=== PATIENT | male | born 1975 | race Caucasian/White ===

== ENCOUNTER 2016-09-11 13:28 | Emergency (ER) | payer MEDICARE, MEDICAID ==
[2016-09-11 13:39] VITALS: BP 135/81
[2016-09-11] MEDS ORDERED: SODIUM BICARBONATE ABBOJECT 50 MEQ/50 ML SYRINGE ONE (15:53)
[2016-09-11] MEDS ORDERED: LIDOCAINE 1% 2 ML VIAL ONE ×2 (15:53→15:55)
--- NOTE | 2016-09-11 15:56 | ED Physician Documentation ---
PD HPI LOWER EXT INJURY - Stated complaint Stated Complaint: SWOLLEN RIGHT FOOT - Chief complaint Chief Complaint: Trauma Ext - History obtained from History obtained from: Patient - History of Present Illness PD HPI LOW EXT INJURY LOCATION: Right (Long-standing ingrown toenail of the right great toe which is painful especially on the lateral side.) Review of Systems Constitutional: reports: Reviewed and negative Nose: reports: Reviewed and negative Throat: reports: Reviewed and negative PD PAST MEDICAL HISTORY - Past Medical History Cardiovascular: None Respiratory: Asthma Neuro: None Endocrine/Autoimmune: None GI: None : Kidney stones HEENT: None Psych: None Musculoskeletal: None Derm: None - Past Surgical History Past Surgical History: Yes - Present Medications Home Medications: Ambulatory Orders Medication Instructions Recorded Confirmed Albuterol Sulfate [Ventolin Hfa] 2 puffs IH Q4H PRN #1 hfa.aer.ad 10/03/15 Benzonatate [Tessalon] 200 mg PO TID PRN #30 capsule 10/03/15 Prednisone 40 mg PO DAILY 5 Days 10/03/15 Hydrocodone/Acetaminophen [[place] 1 each PO Q6H PRN #15 tablet 01/27/16 5-325 Tablet] Ibuprofen 800 mg PO TID #20 tablet 01/27/16 Ondansetron HCl [Zofran] 4 mg PO Q6H PRN #15 tablet 01/27/16 Diazepam [Valium] 2 mg PO Q6H PRN #10 tablet 02/29/16 Meloxicam [Mobic] 7.5 mg PO BIDWM PRN #15 tablet 02/29/16 predniSONE [Deltasone] 20 mg PO DAILY 5 Days 02/29/16 - Allergies Allergies/Adverse Reactions: Allergies Allergy/AdvReac Type Severity Reaction Status Date / Time Penicillins Allergy Mild Rash Verified 10/17/14 22:17 amoxicillin [Amoxicillin] AdvReac Intermediate Emesis Verified 10/17/14 22:17 amoxicillin trihydrate * AdvReac Intermediate Emesis Verified 10/17/14 22:17 [From Augmentin] potassium clavulanate * AdvReac Intermediate Emesis Verified 10/17/14 22:17 [From Augmentin] - Social History Does the pt smoke?: No Smoking Status: Never smoker Does the pt drink ETOH?: No Does the pt have substance abuse?: No - Immunizations Immunizations are current?: No Immunizations: TDAP >10years/unknown - POLST Patient has POLST: No PD ED PE NORMAL - Vitals Vital signs reviewed: Yes - General General: Alert and oriented X 3, No acute distress - Extremities Extremities: Other (The entirety of the right great toe is ingrown with Onychiomycosis as well.) - Neuro Neuro: Alert and oriented X 3, Normal speech - Psych Psych: Normal mood, Normal affect Results - Vitals Vitals: Vital Signs - 24 hr 09/11/16 13:36 Temperature 36.9 C Heart Rate 74 Respiratory 20 Rate Blood Pressure 135/81 H O2 Saturation 98 Oxygen O2 Source Room air Procedures - General procedure General procedure: After digital block of the right great toe with buffered plain lidocaine the toenail was removed using blunt dissection, the base was cauterized with silver nitrate a dressing was placed. Departure - Departure Disposition: 01 Home, Self Care Clinical Impression: Ingrown toenail, Onychomycosis Condition: Good Record reviewed to determine appropriate education?: Yes Instructions: ED Ingrown Toenail Excised Comments: Keep the current dressing on for 2 days, after that you may wash it briefly with soap and water and keep it clean and dry. Return if worse. Follow up with your Dr. in one week. Your blood pressure was elevated today on check in to the emergency department. This does not mean that you have hypertension, it is a common phenomenon to check into the emergency department and have elevated blood pressure. I recommend that you see your primary care physician within the week to have it rechecked when you're feeling better.
== END 2016-09-11 16:42 | disposition home or self-care (01) ==
LOC: ED 13:28
DX: L60.0 Ingrowing nail (principal); B35.1 Tinea unguium; J45.909 Unspecified asthma, uncomplicated; Z87.442 Personal history of urinary calculi; R03.0 Elevated blood-pressure reading, without diagnosis of hypertension
CPT/HCPCS: 11730; 99282; 99283

== ENCOUNTER 2017-02-04 12:42 | Emergency (ER) | payer MEDICARE, MEDICAID ==
[2017-02-04] MEDS ORDERED: ONDANSETRON 4 MG/2 ML VIAL IVP STA (13:08)
[2017-02-04] MEDS ORDERED: KETOROLAC 60 MG/2 ML VIAL IVP STA (13:08)
--- NOTE | 2017-02-04 13:10 | ED Physician Documentation ---
PD HPI ABD PAIN - Stated complaint Stated Complaint: ABD PX/NAUSEA/BACK PX - Chief complaint Chief Complaint: Abd Pain - History obtained from History obtained from: Patient - History of Present Illness Timing - onset: Other (41-year-old gentleman with history of renal colic, although not many years presents with 3 days worth of stomach upset and left- sided abdominal and flank pain associated with urinary burning but no hematuria or frequency. He has been nauseous but has not vomited. He did feel some pain with bowel movements as well yesterday. No fevers.) Review of Systems Constitutional: denies: Fever, Chills Nose: denies: Rhinorrhea / runny nose, Congestion Cardiac: denies: Chest pain / pressure, Palpitations Respiratory: denies: Dyspnea, Cough PD PAST MEDICAL HISTORY - Past Medical History Cardiovascular: None Respiratory: Asthma Neuro: None Endocrine/Autoimmune: None GI: None : Kidney stones HEENT: None Psych: None Musculoskeletal: None Derm: None - Past Surgical History Past Surgical History: Yes - Present Medications Home Medications: Ambulatory Orders Medication Instructions Recorded Confirmed Albuterol Sulfate [Ventolin Hfa] 2 puffs IH Q4H PRN #1 hfa.aer.ad 10/03/15 Benzonatate [Tessalon] 200 mg PO TID PRN #30 capsule 10/03/15 Prednisone 40 mg PO DAILY 5 Days 10/03/15 Hydrocodone/Acetaminophen [[place] 1 each PO Q6H PRN #15 tablet 01/27/16 5-325 Tablet] Ibuprofen 800 mg PO TID #20 tablet 01/27/16 Ondansetron HCl [Zofran] 4 mg PO Q6H PRN #15 tablet 01/27/16 Diazepam [Valium] 2 mg PO Q6H PRN #10 tablet 02/29/16 Meloxicam [Mobic] 7.5 mg PO BIDWM PRN #15 tablet 02/29/16 predniSONE [Deltasone] 20 mg PO DAILY 5 Days 02/29/16 HYDROcod/ACETAM 5/325 [[place] 5/325] 1 - 2 ea PO Q6H PRN #15 tablet 02/04/17 Ondansetron HCl [Zofran] 4 mg PO Q6H PRN #10 tablet 02/04/17 Tamsulosin [Flomax] 0.4 mg PO DAILY #14 capsule 02/04/17 - Allergies Allergies/Adverse Reactions: Allergies Allergy/AdvReac Type Severity Reaction Status Date / Time Penicillins Allergy Mild Rash Verified 10/17/14 22:17 amoxicillin [Amoxicillin] AdvReac Intermediate Emesis Verified 10/17/14 22:17 amoxicillin trihydrate * AdvReac Intermediate Emesis Verified 10/17/14 22:17 [From Augmentin] potassium clavulanate * AdvReac Intermediate Emesis Verified 10/17/14 22:17 [From Augmentin] - Social History Does the pt smoke?: No Smoking Status: Never smoker Does the pt drink ETOH?: No Does the pt have substance abuse?: No - Immunizations Immunizations are current?: No Immunizations: TDAP >10years/unknown - POLST Patient has POLST: No PD ED PE NORMAL - Vitals Vital signs reviewed: Yes - General General: Alert and oriented X 3, No acute distress - Cardiac Cardiac: RRR, No murmur - Respiratory Respiratory: No respiratory distress, Clear bilaterally - Abdomen Abdomen: Soft, Non tender - Back Back: Other (Mild left CVA tenderness, no rash there) - Derm Derm: Normal color, Warm and dry - Extremities Extremities: No edema, No calf tenderness / cord - Neuro Neuro: Alert and oriented X 3, Normal speech - Psych Psych: Normal mood, Normal affect Results - Vitals Vitals: Vital Signs - 24 hr 02/04/17 12:54 Temperature 37.1 C Heart Rate 89 Respiratory 17 Rate Blood Pressure 157/96 H O2 Saturation 97 Oxygen O2 Source Room air - Labs Labs: Laboratory Tests 02/04/17 02/04/17 02/04/17 13:00 13:22 13:22 WBC 7.4 RBC 4.64 L Hgb 14.4 Hct 41.7 L MCV 89.8 MCH 31.0 MCHC 34.5 RDW 12.7 Plt Count 172 MPV 7.9 Neut # 5.1 Lymph # 1.5 [place] # 0.8 Eos # 0.1 Baso # 0.0 Absolute Nucleated RBC 0.00 Nucleated RBCs 0.0 Sodium 136 Potassium 3.9 Chloride 100 L Carbon Dioxide 29 Anion Gap 7.0 BUN 19 Creatinine 1.4 H Estimated GFR (MDRD) 55 L Glucose 101 H Calcium 8.8 Total Bilirubin 0.7 AST 28 ALT 35 Alkaline Phosphatase 59 Total Protein 6.9 Albumin 4.3 Globulin 2.6 Albumin/Globulin Ratio 1.7 Lipase 20 L Urine Color YELLOW Urine Clarity CLEAR Urine pH 6.0 Ur Specific [place] 1.020 Urine Protein NEGATIVE Urine Glucose (UA) NEGATIVE Urine Ketones NEGATIVE Urine Occult Blood TRACE-INTA Urine Nitrite NEGATIVE Urine Bilirubin NEGATIVE Urine Urobilinogen 0.2 (NORMAL) Ur Leukocyte Esterase NEGATIVE Ur Microscopic Review NOT INDICATED Urine Culture Comments NOT INDICATED - Rads (name of study) CT KUB Radiology: EMP read contemporaneously (8 x 6 mm obstructing left UPJ stone and nonobstructing right renal calculi) PD MEDICAL DECISION MAKING - ED course ED course: 41-year-old gentleman with renal colic presents with an exacerbation of same with a stone will likely need to be addressed. His pain was easily controlled here and he was referred to a urologist for definitive treatment. Further NSAIDs were held given mild elevation in creatinine Departure - Departure Disposition: Home, Self Care Clinical Impression: Renal colic Condition: Good Record reviewed to determine appropriate education?: Yes Instructions: ED Stone Renal W Colic Prescriptions: Tamsulosin [Flomax] 0.4 mg PO DAILY #14 capsule HYDROcod/ACETAM 5/325 [[place] 5/325] 1 - 2 ea PO Q6H PRN #15 tablet PRN Reason: Pain Ondansetron HCl [Zofran] 4 mg PO Q6H PRN #10 tablet PRN Reason: Nausea / Vomiting Comments: As discussed, he will likely need to have the stone retrieved by urologist. Now that Dr. Sung is retired the closest is in [place], call [phone] tomorrow to schedule the next available appointment. Take the copy of the CAT scan on CD with you. Do not drink or drive while taking narcotic pain medication. Note that many narcotic pain relievers also contain Tylenol/acetaminophen. Please ensure that your total dose of acetaminophen from all sources does not exceed 3 g (3000 mg) per day. You may get constipated while on this medication. Take a stool softener such as Colace twice a day while you are on it. Also add an [id number] laxative such as senna or MiraLAX on any day that you do not have a bowel movement. If you received a narcotic pain medication or sedative while in the emergency department, do not drive for the next 24 hours. Your blood pressure was elevated today on check into the emergency department. This does not mean that you have hypertension, it is a common phenomenon to come to the emergency department and have elevated blood pressure. I recommend that she see her primary care physician within the week to have it rechecked when you are feeling better.
[2017-02-04 13:22] LABS: BILIRUBIN,URINE NEGATIVE (NEGATIVE); UA CHARGE (STRIP ONLY) YES; UR CULTURE IF IND NOT INDICATED
[2017-02-04 13:29] LABS: BASOPHILS % (AUTO) 0.5 %; EOSINOPHILS # (AUTO) 0.1 10^3/uL (0.0-0.7); EOSINOPHILS % (AUTO) 0.8 %; HCT - HEMATOCRIT 41.7 % (42.0-52.0); HGB - HEMOGLOBIN 14.4 g/dL (14.0-18.0); LYMPHOCYTES # (AUTO) 1.5 10^3/uL (1.5-3.5); LYMPHOCYTES % (AUTO) 19.9 %; MEAN CORPUSCULAR HGB CONC 34.5 g/dL (32.0-36.0); MEAN CORPUSCULAR VOLUME 89.8 fL (80.0-94.0); MEAN PLATELET VOLUME 7.9 fL (7.4-11.4); MONOCYTES # (AUTO) 0.8 10^3/uL (0.0-1.0); MONOCYTES % (AUTO) 10.4 %; NEUTROPHILS # (AUTO) 5.1 10^3/uL (1.5-6.6); NEUTROPHILS % (AUTO) 68.4 %; RED BLOOD COUNT 4.64 10^6/uL (4.70-6.10); RED CELL DISTRIBUTION WIDTH 12.7 % (12.0-15.0); UNCORRECTED WHITE BLOOD COUNT 7.4 x10^3/uL; WHITE BLOOD COUNT 7.4 x10^3/uL (4.8-10.8)
[2017-02-04 13:43] LABS: ALBUMIN/GLOBULIN RATIO 1.7 (1.0-2.2); BILIRUBIN,TOTAL 0.7 mg/dL (0.2-1.0); CALCIUM 8.8 mg/dL (8.5-10.3); CREATININE 1.4 mg/dL (0.6-1.2); POTASSIUM 3.9 mmol/L (3.5-5.0); TOTAL PROTEIN 6.9 g/dL (6.7-8.2)
[2017-02-04] MEDS ORDERED: KETOROLAC 30 MG/ML VIAL ONE (13:52)
[2017-02-04] MEDS ORDERED: ONDANSETRON 4 MG/2 ML VIAL ONE (13:52)
[2017-02-04] MEDS ORDERED: SODIUM CHLORIDE FLUSH 0.9% 10 ML SYRINGE IVP ONE (13:52)
[2017-02-04] MEDS ORDERED: SODIUM CHLORIDE 0.9% 1,000 ML IV ONE (14:04)
--- NOTE | 2017-02-04 14:05 | CT Preliminary Report ---
Exam: CT Abdomen/Pelvis W/O IMPRESSION: Obstructing 8 x 6 mm stone in the left ureteropelvic junction, with moderate left hydronephrosis. Sma ller nonobstructing right renal calculi. [facility] SITE ID: [id number]
--- NOTE | 2017-02-04 14:08 | CT Report ---
EXAM: CT ABDOMEN AND PELVIS (CT KUB) EXAM DATE: 02/04/2017 01:53 PM. CLINICAL HISTORY: L flank pain. COMPARISONS: 01/27/2016. TECHNIQUE: Routine axial helical CT imaging was performed through the abdomen and pelvis without IV c ontrast. Reconstructions: Coronal and sagittal. In accordance with CT protocol optimization, one or more of the following dose reduction techniques w ere utilized for this exam: automated exposure control, adjustment of mA and/or KV based on patient s ize, or use of iterative reconstructive technique. FINDINGS: Lung Bases: Mild atelectasis. Right Kidney/Ureter: 3 mm nonobstructing lower pole calculus and 1 mm interpolar calculus, also nonob structing. No hydronephrosis. Left Kidney/Ureter: Obstructing 8 x 6 mm calculus at the left ureteropelvic junction. Moderate left h ydronephrosis. No hydroureter. Left perinephric stranding. R Other Solid Organs: Noncontrast images of the solid organs are grossly unremarkable. Gallbladder/Bile Ducts: Unremarkable. Peritoneal Cavity: No free fluid, free air or tish adenopathy. Bowel is grossly unremarkable. Pelvic Organs: Trace free fluid in the pelvis. No distal ureteric calculus or bladder calculus is see n. Vasculature: Unremarkable. Other: None. IMPRESSION: Obstructing 8 x 6 mm stone in the left ureteropelvic junction, with moderate left hydronephrosis. Sma ller nonobstructing right renal calculi. [facility] Referring Provider Line: [phone] SITE ID: [id number]
[2017-02-04 14:36] VITALS: BP 133/76
== END 2017-02-04 14:45 | disposition home or self-care (01) ==
LOC: ED 12:42
DX: N20.0 Calculus of kidney (principal)
CPT/HCPCS: 36415; 74176; 80053; 81001; 81003; 83690; 85025; 87086; 96374; 96375; 99283; 99284

== ENCOUNTER 2017-03-30 11:24 | Emergency (ER) | payer MEDICARE, MEDICAID ==
[2017-03-30] MEDS ORDERED: KETOROLAC 60 MG/2 ML VIAL IVP STA (12:15)
[2017-03-30] MEDS ORDERED: ONDANSETRON 4 MG/2 ML VIAL IVP STA (12:17)
--- NOTE | 2017-03-30 12:18 | ED Physician Documentation ---
PD HPI ABD PAIN - Stated complaint Stated Complaint: LT SIDE/BACK PX - Chief complaint Chief Complaint: Abd Pain - History obtained from History obtained from: Patient - History of Present Illness Timing - onset: Today Timing - duration: Hours (4) Timing - details: Abrupt onset Pain level max: 8 Pain level now: 8 Quality: Aching, Pain Location: Other (R flank) Radiation: Right flank Improved by: Other (nothing) Worsened by: Other (nothing) Associated symptoms: Nausea, Vomiting. No: Fever, Hematemesis, Diarrhea, Constipation, Melena, Hematochezia, Dysuria, Hematuria, Chest pain, Dizzy, Near syncope / syncope Similar symptoms before: Diagnosis (kidney stones x 2, states they both had to be removed.) Review of Systems Constitutional: denies: Fever, Chills Ears: denies: Ear pain Nose: denies: Rhinorrhea / runny nose, Congestion Throat: denies: Sore throat Cardiac: denies: Chest pain / pressure Respiratory: denies: Cough Skin: denies: Rash Musculoskeletal: denies: Neck pain, Back pain Neurologic: denies: Focal weakness, Numbness, Headache PD PAST MEDICAL HISTORY - Past Medical History Cardiovascular: None Respiratory: Asthma Neuro: None Endocrine/Autoimmune: None GI: None : Kidney stones HEENT: None Psych: None Musculoskeletal: None Derm: None - Past Surgical History Past Surgical History: Yes - Present Medications Home Medications: Ambulatory Orders Medication Instructions Recorded Confirmed Albuterol Sulfate [Ventolin Hfa] 2 puffs IH Q4H PRN #1 hfa.aer.ad 10/03/1503/30 Hydrocodone/Acetaminophen [[place] 1 each PO Q6H PRN #15 tablet 01/27/16 03/30/17 5-325 Tablet] Ibuprofen 800 mg PO TID #20 tablet 01/27/16 03/30/17 Ondansetron HCl [Zofran] 4 mg PO Q6H PRN #15 tablet 01/27/16 03/30/17 Meloxicam [Mobic] 7.5 mg PO BIDWM PRN #15 tablet 02/29/16 03/30/17 HYDROcod/ACETAM 5/325 [[place] 5/325] 1 - 2 ea PO Q6H PRN #15 tablet 02/04/17 Hydrocodone/Acetaminophen 1 - 2 each PO Q6H PRN #14 tablet 03/30/17 [Hydrocodon-Acetaminophen 5-325] Ibuprofen [Motrin] 800 mg PO Q8H PRN #30 tablet 03/30/17 Ondansetron Odt [Zofran] 4 mg TL Q6H PRN #10 tablet 03/30/17 - Allergies Allergies/Adverse Reactions: Allergies Allergy/AdvReac Type Severity Reaction Status Date / Time Penicillins Allergy Mild Rash Verified 03/30/17 11:32 amoxicillin [Amoxicillin] AdvReac Intermediate Emesis Verified 03/30/17 11:32 amoxicillin trihydrate * AdvReac Intermediate Emesis Verified 03/30/17 11:32 [From Augmentin] potassium clavulanate * AdvReac Intermediate Emesis Verified 03/30/17 11:32 [From Augmentin] - Social History Does the pt smoke?: No Smoking Status: Never smoker Does the pt drink ETOH?: No Does the pt have substance abuse?: No - Immunizations Immunizations are current?: No Immunizations: TDAP >10years/unknown - POLST Patient has POLST: No PD ED PE NORMAL - Vitals Vital signs reviewed: Yes - General General: Alert and oriented X 3, No acute distress - HEENT HEENT: Moist mucous membranes - Neck Neck: Supple, no meningeal sign - Cardiac Cardiac: RRR - Respiratory Respiratory: No respiratory distress, Clear bilaterally - Abdomen Abdomen: Soft, Non tender, Non distended - Male Male : Pt declined - Back Back: No CVA TTP, No spinal TTP - Derm Derm: Warm and dry, No rash - Neuro Neuro: Alert and oriented X 3 - Psych Psych: Normal mood, Normal affect Results - Vitals Vitals: Vital Signs - 24 hr 03/30/17 03/30/17 03/30/17 11:26 12:57 14:01 Temperature 35.0 C L Heart Rate 67 87 78 Respiratory 18 15 16 Rate Blood Pressure 174/97 H 147/91 H 127/64 O2 Saturation 99 94 99 Oxygen O2 Source Room air - Labs Labs: Laboratory Tests 03/30/17 03/30/17 03/30/17 12:04 12:04 12:04 WBC 5.4 RBC 4.86 Hgb 15.2 Hct 44.3 MCV 91.3 MCH 31.3 H MCHC 34.3 RDW 12.7 Plt Count 183 MPV 8.0 Neut # 3.9 Lymph # 1.0 L [place] # 0.5 Eos # 0.0 Baso # 0.0 Absolute Nucleated RBC 0.00 Nucleated RBC % 0.0 Sodium 137 Potassium 3.9 Chloride 99 L Carbon Dioxide 27 Anion Gap 11.0 BUN 18 Creatinine 0.9 Estimated GFR (MDRD) 92 Glucose 132 H Calcium 9.5 Total Bilirubin 0.5 AST 38 ALT 55 Alkaline Phosphatase 66 Total Protein 7.6 Albumin 5.0 Globulin 2.6 Albumin/Globulin Ratio 1.9 Lipase 19 L Urine Color BROWN Urine Clarity CLOUDY Urine pH 5.5 Ur Specific [place] >=1.030 H Urine Protein 100 H Urine Glucose (UA) NEGATIVE Urine Ketones NEGATIVE Urine Occult Blood LARGE H Urine Nitrite NEGATIVE Urine Bilirubin SMALL H Urine Urobilinogen 0.2 (NORMAL) Ur Leukocyte Esterase NEGATIVE Urine RBC TNTC H Urine WBC 0-3 Ur Epithelial Cells RARE Renal Tubular Ur Squamous Epith Cells FEW Squamous Urine Crystals 6-10 Calcium Oxalate Urine Bacteria Rare Urine Mucus Few Strands Ur Microscopic Review INDICATED Urine Culture Comments NOT INDICATED - Rads (name of study) CT abd/pelvis w/o Radiology: Prelim report reviewed, EMP read contemporaneously, See rad report ( There is bilateral nephrolithiasis. There is mild right hydronephrosis, hydroureter, perinephric stranding secondary to a 0.2 cm stone within the lower right ureter. ) PD MEDICAL DECISION MAKING - ED course Complexity details: reviewed results, re-evaluated patient, considered differential, d/w patient ED course: Patient is a 41-year-old male who presents to the emergency department with right flank pain. He is found to have a 0.2 cm stone within the lower right ureter. Pain resolved with Toradol. Tolerating p.o. without difficulty. No UTI. Will place on pain medication for home and follow-up with his doctor and his urologist. Patient counseled regarding signs and symptoms for which I believe and urgent re-evaluation would be necessary. Patient with good understanding of and agreement to plan and is comfortable going home at this time This document was made in part using voice recognition software. While efforts are made to proofread this document, sound alike and grammatical errors may occur. Departure - Departure Disposition: 01 Home, Self Care Clinical Impression: Ureteral stone Condition: Good Instructions: ED Stone Renal W Colic Follow-Up: Jasper Greene MD [Primary Care Provider] - Within 1 week Prescriptions: Hydrocodone/Acetaminophen [Hydrocodon-Acetaminophen 5-325] 1 - 2 each PO Q6H PRN #14 tablet PRN Reason: pain Ibuprofen [Motrin] 800 mg PO Q8H PRN #30 tablet PRN Reason: PAIN &/OR FEVER Ondansetron Odt [Zofran] 4 mg TL Q6H PRN #10 tablet PRN Reason: Nausea / Vomiting Comments: Drink plenty of fluids. Return if you worsen. Do not drink alcohol or drive while on narcotic pain medicine. Note that many narcotic pain relievers also contain tylenol/acetaminophen. Please ensure that your total dose of acetaminophen from all sources does not exceed 3 grams (3000mg) per day. You may constipated on this medication, take a stool softener such as "Colace" twice a day while you are on it. Also recommend a uhto-wrb-htnphwq laxative such as senna or MiraLAX any day that you do not have a bowel movement. If you received narcotic pain medication in the emergency department, do not drive or operate machinery for the next 24 hours. Discharge Date/Time: 03/30/17 14:01
[2017-03-30 12:22] LABS: BILIRUBIN,URINE SMALL (NEGATIVE); PH,URINE 5.5 PH (5.0-7.5)
[2017-03-30 12:23] LABS: BASOPHILS % (AUTO) 0.4 %; EOSINOPHILS % (AUTO) 0.1 %; HCT - HEMATOCRIT 44.3 % (42.0-52.0); HGB - HEMOGLOBIN 15.2 g/dL (14.0-18.0); LYMPHOCYTES % (AUTO) 18.8 %; MEAN CORPUSCULAR HEMOGLOBIN 31.3 pg (27.0-31.0); MEAN CORPUSCULAR HGB CONC 34.3 g/dL (32.0-36.0); MEAN CORPUSCULAR VOLUME 91.3 fL (80.0-94.0); MONOCYTES # (AUTO) 0.5 10^3/uL (0.0-1.0); MONOCYTES % (AUTO) 8.5 %; NEUTROPHILS # (AUTO) 3.9 10^3/uL (1.5-6.6); NEUTROPHILS % (AUTO) 72.2 %; RED BLOOD COUNT 4.86 10^6/uL (4.70-6.10); RED CELL DISTRIBUTION WIDTH 12.7 % (12.0-15.0); UNCORRECTED WHITE BLOOD COUNT 5.4 x10^3/uL; WHITE BLOOD COUNT 5.4 x10^3/uL (4.8-10.8)
[2017-03-30] MEDS ORDERED: KETOROLAC 30 MG/ML VIAL ONE (12:28)
[2017-03-30] MEDS ORDERED: ONDANSETRON 4 MG/2 ML VIAL ONE (12:28)
[2017-03-30 12:33] LABS: ALBUMIN/GLOBULIN RATIO 1.9 (1.0-2.2); BILIRUBIN,TOTAL 0.5 mg/dL (0.2-1.0); CALCIUM 9.5 mg/dL (8.5-10.3); CREATININE 0.9 mg/dL (0.6-1.2); POTASSIUM 3.9 mmol/L (3.5-5.0); TOTAL PROTEIN 7.6 g/dL (6.7-8.2)
[2017-03-30 12:35] LABS: UA w/ MICROSCOPIC CHARGE YES
[2017-03-30 12:41] LABS: UR CULTURE IF IND NOT INDICATED; WBC,URINE 0-3 /HPF (0-3)
--- NOTE | 2017-03-30 13:51 | CT Preliminary Report ---
Exam: CT ABDOMEN/PELVIS W/O IMPRESSION: There is bilateral nephrolithiasis. There is mild right hydronephrosis, hydroureter, perinephric stra nding secondary to a 0.2 cm stone within the lower right ureter. [facility] SITE ID: [id number]
--- NOTE | 2017-03-30 13:53 | CT Report ---
EXAM: CT ABDOMEN AND PELVIS (CT KUB) EXAM DATE: 03/30/2017 01:21 PM. CLINICAL HISTORY: R flank pain, h/o renal stones. COMPARISONS: 02/04/2017. TECHNIQUE: Routine axial helical CT imaging was performed through the abdomen and pelvis without IV c ontrast. Reconstructions: Coronal and sagittal. In accordance with CT protocol optimization, one or more of the following dose reduction techniques w ere utilized for this exam: automated exposure control, adjustment of mA and/or KV based on patient s ize, or use of iterative reconstructive technique. FINDINGS: Lung Bases: Unremarkable. Right Kidney/Ureter: There is mild right hydronephrosis, hydroureter, and perinephric stranding secon jun to a 0.2 cm stone within the lower right ureter (image 82 series 3). There is a 0.4 cm nonobstru cting stone within the lower right kidney. Left Kidney/Ureter: There are several nonobstructing stones within the inferior left kidney. There is no evidence of distal obstructing stone or hydronephrosis. Other Solid Organs: Noncontrast images of the solid organs are grossly unremarkable. Gallbladder/Bile Ducts: Unremarkable. Peritoneal Cavity: No free fluid, free air or tish adenopathy. Bowel is grossly unremarkable. Pelvic Organs: No bladder stones or wall thickening. Noncontrast images of the visualized pelvic orga ns are unremarkable. Vasculature: Unremarkable. Other: None. IMPRESSION: There is bilateral nephrolithiasis. There is mild right hydronephrosis, hydroureter, perinephric stra nding secondary to a 0.2 cm stone within the lower right ureter. [facility] Referring Provider Line: [phone] SITE ID: [id number]
[2017-03-30 14:01] VITALS: BP 127/64
== END 2017-03-30 14:01 | disposition home or self-care (01) ==
LOC: ED 11:24
DX: N13.2 Hydronephrosis with renal and ureteral calculous obstruction (principal); Z87.442 Personal history of urinary calculi; J45.909 Unspecified asthma, uncomplicated
CPT/HCPCS: 36415; 74176; 80053; 81001; 81003; 83690; 85025; 87086; 96374; 96375; 99284

== ENCOUNTER 2017-04-24 12:57 | Outpatient (CLI) | payer MEDICARE, MEDICAID ==
[2017-04-24 14:12] LABS: BILIRUBIN,URINE NEGATIVE (NEGATIVE)
[2017-04-24 14:22] LABS: UR CULTURE IF IND NOT INDICATED; WBC,URINE 0-3 /HPF (0-3)
== END 2017-04-24 12:58 | disposition home or self-care (01) ==
LOC: LAB 12:57
PROVIDERS: ATTEND Urology
DX: R30.0 Dysuria (principal)
CPT/HCPCS: 81001; 87086

== ENCOUNTER 2017-07-10 16:43 | Emergency (ER) | payer MEDICARE, MEDICAID ==
[2017-07-10 16:49] VITALS: BP 146/101
--- NOTE | 2017-07-10 17:00 | ED Physician Documentation ---
PD HPI NECK PAIN - Stated complaint Stated Complaint: HEAD/NECK PX, BLURRY VISION - Chief complaint Chief Complaint: General - History obtained from History obtained from: Patient - History of Present Illness Timing - onset: How many months ago (1) Timing - details: Gradual onset, Waxing and waning Location: Upper Quality: Pain, Aching, Similar to prior episodes Associated symptoms: No: Fever, Weakness, Numbness Improves with: Rest Worsened by: Movement Contributing factors: No: Lifting, Twisting, Trauma Similar symptoms before: Has not had sx before Recently seen: Not recently seen Review of Systems Constitutional: denies: Fever, Chills Nose: denies: Rhinorrhea / runny nose, Congestion Throat: denies: Sore throat Respiratory: denies: Cough Skin: denies: Rash, Lesions Musculoskeletal: denies: Neck pain, Back pain Neurologic: reports: Headache. denies: Generalized weakness, Focal weakness, Numbness, Confused, Altered mental status, Head injury PD PAST MEDICAL HISTORY - Past Medical History Cardiovascular: None Respiratory: Asthma Neuro: None Endocrine/Autoimmune: None GI: None : Kidney stones HEENT: None Psych: None Musculoskeletal: None Derm: None - Past Surgical History Past Surgical History: Yes - Present Medications Home Medications: Ambulatory Orders Medication Instructions Recorded Confirmed Albuterol Sulfate [Ventolin Hfa] 2 puffs IH Q4H PRN #1 hfa.aer.ad 10/03/1507/10 Ibuprofen [Motrin] 800 mg PO Q8H PRN #30 tablet 03/30/17 07/10/17 Ondansetron Odt [Zofran] 4 mg TL Q6H PRN #10 tablet 03/30/17 07/10/17 Dexamethasone [Decadron] 4 mg PO DAILY #5 tablet 07/10/17 Methocarbamol [Robaxin] 500 mg PO Q6H PRN #25 tablet 07/10/17 Naproxen 375 mg PO BID #20 tablet 07/10/17 Tramadol HCl 50 mg PO Q6H PRN #20 tablet 07/10/17 Trazodone HCl 100 mg PO DAILY 07/10/17 07/10/17 - Allergies Allergies/Adverse Reactions: Allergies Allergy/AdvReac Type Severity Reaction Status Date / Time Penicillins Allergy Mild Rash Verified 07/10/17 17:13 amoxicillin [Amoxicillin] AdvReac Intermediate Emesis Verified 07/10/17 17:13 amoxicillin trihydrate * AdvReac Intermediate Emesis Verified 07/10/17 17:13 [From Augmentin] potassium clavulanate * AdvReac Intermediate Emesis Verified 07/10/17 17:13 [From Augmentin] - Social History Does the pt smoke?: No Smoking Status: Never smoker Does the pt drink ETOH?: No Does the pt have substance abuse?: No - Immunizations Immunizations are current?: No Immunizations: TDAP >10years/unknown - POLST Patient has POLST: No PD ED PE NORMAL - Vitals Vital signs reviewed: Yes - General General: Alert and oriented X 3, Well developed/nourished - HEENT HEENT: Atraumatic, PERRL, EOMI, Ears normal, Moist mucous membranes, Pharynx benign - Neck Neck: Supple, no meningeal sign, No bony TTP (tender in trapezius insertion sites both sides. No rash nor sores. ), No adenopathy - Cardiac Cardiac: RRR, No murmur - Respiratory Respiratory: Clear bilaterally - Abdomen Abdomen: Soft, Non tender - Back Back: No CVA TTP - Derm Derm: Normal color, Warm and dry, No rash - Extremities Extremities: No deformity, No tenderness to palpate, Normal ROM s pain - Neuro Neuro: Alert and oriented X 3, boom stick man 2-12 intact, No motor deficit, No sensory deficit, Normal speech, Other Results - Vitals Vitals: Oxygen O2 Source Room air - Rads (name of study) head and neck CT Radiology: Prelim report reviewed (no acute process. ) PD MEDICAL DECISION MAKING - ED course Complexity details: reviewed results, considered differential (seems muscular and perhaps some occipital nerve irritation with the pain going back of head. Trigger point injection with Kenalog/Marcaine at both sides. Did help reduce the pain.), d/w patient Departure - Departure Disposition: Home, Self Care Clinical Impression: Neck pain Headache Qualifiers: Headache type: unspecified Headache chronicity pattern: acute headache Intractability: not intractable Qualified Code(s): R51 - Headache Condition: Stable Record reviewed to determine appropriate education?: Yes Instructions: ED Cephalgia Unspecified, ED Neck Pain No Trauma Follow-Up: Jasper Greene MD [Primary Care Provider] - Prescriptions: Dexamethasone [Decadron] 4 mg PO DAILY #5 tablet Methocarbamol [Robaxin] 500 mg PO Q6H PRN #25 tablet PRN Reason: Spasms Naproxen 375 mg PO BID #20 tablet Tramadol HCl 50 mg PO Q6H PRN #20 tablet PRN Reason: Pain Comments: Your head and neck CT scans are okay with just some mild arthritis in the neck. I think your headache is more being triggered by muscle irritation of the nerve in the back of the head and upper neck. Will try a combination of anti- inflammatories with naproxen and Decadron. I did an injection with some in the trapezius insertion of the neck area as well. Use Robaxin muscle relaxant if needed for stiffness. Add Tylenol or tramadol if needed for pains. Follow-up with your primary care if not better over the next 3 or 4 days. Discharge Date/Time: 07/10/17 18:56
[2017-07-10] MEDS ORDERED: METHOCARBAMOL 500 MG TABLET PO STA (17:31)
[2017-07-10] MEDS ORDERED: TRIAMCINOLONE 40 MG/ML VIAL IM STA (17:31)
[2017-07-10] MEDS ORDERED: NAPROXEN 250 MG TABLET PO STA (17:31)
--- NOTE | 2017-07-10 18:16 | CT Report ---
EXAM: CT HEAD EXAM DATE: 07/10/2017 05:47 PM. CLINICAL HISTORY: Upper neck and posterior head pain for a month. COMPARISON: Head CT 03/07/2016. TECHNIQUE: Multiaxial CT images were obtained from the foramen magnum to the vertex. Reformats: Coron al. IV contrast: None. In accordance with CT protocol optimization, one or more of the following dose reduction techniques w ere utilized for this exam: automated exposure control, adjustment of mA and/or KV based on patient s ize, or use of iterative reconstructive technique. FINDINGS: Parenchyma: No intraparenchymal hemorrhage. No evidence of mass, midline shift, or CT findings of inf arction. Evans-white differentiation is distinct. Extraaxial Spaces: Normal for age. No subdural or epidural collections identified. Ventricles: Normal in size and position. Sinuses and Orbits: Imaged paranasal sinuses, orbits, and mastoids show no significant abnormality. Bones: No evidence of fracture or calvarial defect. Other: None. IMPRESSION: Normal head CT. [facility] Referring Provider Line: [phone] SITE ID: [id number]
--- NOTE | 2017-07-10 18:22 | CT Preliminary Report ---
Exam: CT CERVICAL SPINE W/O IMPRESSION: 1. No evidence for acute fracture. 2. Mild to moderate degenerative changes as above. [facility] SITE ID: [id number]
--- NOTE | 2017-07-10 18:23 | CT Report ---
EXAM: CT CERVICAL SPINE WITHOUT CONTRAST DATE: 07/10/2017 06:00 PM. HISTORY: Upper neck pain into head. COMPARISONS: CT cervical spine 03/07/2016. TECHNIQUE: Thin-section axial images were acquired of the cervical spine without contrast. Post-proce ssing: Coronal and sagittal reformats. Other: None. In accordance with CT protocol optimization, one or more of the following dose reduction techniques w ere utilized for this exam: automated exposure control, adjustment of mA and/or KV based on patient s ize, or use of iterative reconstructive technique. FINDINGS: Alignment: No scoliosis or spondylolisthesis. Bones: No fracture or bone lesion. Interspace Levels/Facets: Mild degenerative disk disease with endplate osteophytes at the C3-C4, C4-C 5 and C6-C7. Mild to moderate degenerative disk disease with osteophytes and mild disk height loss at C5-C6. Mild right C5-C6 facet arthropathy. No acute soft tissue findings. IMPRESSION: 1. No evidence for acute fracture. 2. Mild to moderate degenerative changes as above. [facility] Referring Provider Line: [phone] SITE ID: [id number]
== END 2017-07-10 18:56 | disposition home or self-care (01) ==
LOC: ED 16:43
DX: R51 Headache (principal); M54.2 Cervicalgia; J45.909 Unspecified asthma, uncomplicated; Z87.442 Personal history of urinary calculi
CPT/HCPCS: 70450; 72125; 96372; 99283; A9270

== ENCOUNTER 2017-08-04 13:35 | Outpatient (CLI) | payer MEDICARE, MEDICAID ==
--- NOTE | 2017-08-04 19:11 | MRI Preliminary Report ---
Exam: MRI LOWER LEG (TIB-FIB) LT W/O IMPRESSION: 1. Minimal Achilles tendinopathy. 2. No evidence of muscle strain. 3. 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 [facility] MUSCULOSKELETAL RADIOLOGY SECTION SITE ID: [id number]
--- NOTE | 2017-08-04 22:44 | MRI Report ---
EXAM: LEFT CALF/TIBIA MRI WITHOUT CONTRAST EXAM DATE: 08/04/2017 03:11 PM. CLINICAL HISTORY: Calf pain, left. COMPARISON: None. TECHNIQUE: Multiplanar, multisequence T1-weighted and fluid-sensitive sequences of the calf/tibia wit hout contrast. Other: None. FINDINGS: Bones: No fractures or subluxations. No marrow edema. Sequelae of old Fernando-Schlatter's is partially visualized. No bone marrow edema in the 1.0 cm ossific fragment or adjacent tibial tubercle. Joint Spaces: Visualized portions of the ankle and knee joints are unremarkable. Tendons: Minimal thickening of the Achilles tendon. No evidence of tear. Plantaris tendon where visua lized is intact. Mild patellar tendinopathy partially visualized. Musculature: No edema or fatty atrophy. Other: The subcutaneous tissues are unremarkable. IMPRESSION: 1. Minimal Achilles tendinopathy. 2. No evidence of muscle strain. 3. 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 [facility] MUSCULOSKELETAL RADIOLOGY SECTION Referring Provider Line: [phone] SITE ID: [id number]
== END 2017-08-04 13:36 | disposition home or self-care (01) ==
LOC: DI 13:35
PROVIDERS: ATTEND Family Medicine
DX: M67.972 Unspecified disorder of synovium and tendon, left ankle and foot (principal)

== ENCOUNTER 2018-08-06 18:37 | Emergency (ER) | payer MEDICARE, MEDICAID ==
[2018-08-06] MEDS ORDERED: KETOROLAC 60 MG/2 ML VIAL IM STA (19:06)
--- NOTE | 2018-08-06 19:09 | ED Physician Documentation ---
PD HPI HEADACHE - Stated complaint Stated Complaint: LEZAMA - Chief complaint Chief Complaint: Neuro - History obtained from History obtained from: Patient - History of Present Illness Timing - onset: Other (For the last month he has had posterior neck pain radiating up and down with occipital headache and mild light sensitivity. He was seen in the clinic and given Flexeril which was not helpful. There is no associated weakness, numbness, or tingling of the arms or legs.) Review of Systems Constitutional: denies: Fever, Chills Nose: denies: Rhinorrhea / runny nose, Congestion Cardiac: denies: Chest pain / pressure, Palpitations Respiratory: denies: Dyspnea, Cough PD PAST MEDICAL HISTORY - Past Medical History Cardiovascular: None Respiratory: Asthma Endocrine/Autoimmune: None GI: None : Kidney stones HEENT: None Psych: None Musculoskeletal: None Derm: None - Past Surgical History Past Surgical History: Yes - Present Medications Home Medications: Ambulatory Orders Medication Instructions Recorded Confirmed Ibuprofen [Motrin] 800 mg PO Q8H PRN #30 tablet 03/30/17 07/10/17 Butalb/Acetaminophen/Caffeine 1 each PO Q4H PRN #15 capsule 08/06/18 [Fioricet 50-300-40 mg Capsule] Meloxicam [Mobic] 7.5 mg PO BID PRN #20 tablet 08/06/18 - Allergies Allergies/Adverse Reactions: Allergies Allergy/AdvReac Type Severity Reaction Status Date / Time Penicillins Allergy Mild Rash Verified 08/06/18 18:45 amoxicillin [Amoxicillin] AdvReac Intermediate Emesis Verified 08/06/18 18:45 amoxicillin trihydrate * AdvReac Intermediate Emesis Verified 08/06/18 18:45 [From Augmentin] potassium clavulanate * AdvReac Intermediate Emesis Verified 08/06/18 18:45 [From Augmentin] - Social History Does the pt smoke?: No Smoking Status: Never smoker Does the pt drink ETOH?: No Does the pt have substance abuse?: No - Immunizations Immunizations are current?: No Immunizations: TDAP >10years/unknown - POLST Patient has POLST: No PD ED PE NORMAL - Vitals Vital signs reviewed: Yes - General General: Alert and oriented X 3, No acute distress - HEENT HEENT: PERRL, EOMI - Neck Neck: Supple, no meningeal sign, No bony TTP - Back Back: No CVA TTP, No spinal TTP - Extremities Extremities: No edema, No calf tenderness / cord - Neuro Neuro: Alert and oriented X 3, Normal speech - Psych Psych: Normal mood, Normal affect Results - Vitals Vitals: Vital Signs - 24 hr 08/06/18 18:40 Temperature 36.5 C Heart Rate 86 Respiratory 18 Rate Blood Pressure 151/86 H O2 Saturation 99 Oxygen O2 Source Room air PD MEDICAL DECISION MAKING - ED course ED course: This is a 42-year-old gentleman with a subacute headache that is very consistent with a tension headache which is treated symptomatically. Departure - Departure Disposition: Home, Self Care Clinical Impression: Tension headache Condition: Good Record reviewed to determine appropriate education?: Yes Instructions: ED Headache Tension Prescriptions: Butalb/Acetaminophen/Caffeine [Fioricet 50-300-40 mg Capsule] 1 each PO Q4H PRN #15 capsule PRN Reason: Headache Meloxicam [Mobic] 7.5 mg PO BID PRN #20 tablet PRN Reason: Pain Comments: Call your doctor to arrange a follow-up appointment, make the next available appointment. In the interim, return anytime if worse or if new symptoms develop. Your blood pressure was elevated today on check into the emergency department. This does not mean that you have hypertension, it is a common phenomenon to come to the emergency department and have elevated blood pressure. I recommend that you see your primary care physician within the week to have it rechecked when you are feeling better.
[2018-08-06 19:43] VITALS: BP 137/76
== END 2018-08-06 19:43 | disposition home or self-care (01) ==
LOC: ED 18:37
DX: G44.209 Tension-type headache, unspecified, not intractable (principal); R03.0 Elevated blood-pressure reading, without diagnosis of hypertension
CPT/HCPCS: 96372; 99283

== ENCOUNTER 2018-11-18 08:00 | Outpatient (CLI) | payer MEDICARE, MEDICAID ==
[2018-11-18 18:51] LABS: BASOPHILS % (AUTO) 0.5 %; EOSINOPHILS % (AUTO) 0.7 %; HGB - HEMOGLOBIN 15.2 g/dL (14.0-18.0); LYMPHOCYTES # (AUTO) 1.6 10^3/uL (1.5-3.5); LYMPHOCYTES % (AUTO) 34.3 %; MEAN CORPUSCULAR HEMOGLOBIN 30.8 pg (27.0-31.0); MEAN CORPUSCULAR HGB CONC 33.4 g/dL (32.0-36.0); MEAN CORPUSCULAR VOLUME 92.1 fL (80.0-94.0); MEAN PLATELET VOLUME 8.6 fL (7.4-11.4); MONOCYTES # (AUTO) 0.4 10^3/uL (0.0-1.0); MONOCYTES % (AUTO) 9.6 %; NEUTROPHILS # (AUTO) 2.6 10^3/uL (1.5-6.6); NEUTROPHILS % (AUTO) 54.9 %; PLT - PLATELET COUNT 189 10^3/uL (130-450); RED BLOOD COUNT 4.94 10^6/uL (4.70-6.10); RED CELL DISTRIBUTION WIDTH 13.1 % (12.0-15.0); WHITE BLOOD COUNT 4.7 x10^3/uL (4.8-10.8)
[2018-11-18 19:06] LABS: ALBUMIN 4.4 g/dL (3.2-5.5); ALBUMIN/GLOBULIN RATIO 1.5 (1.0-2.2); BILIRUBIN,TOTAL 0.8 mg/dL (0.2-1.0); CALCIUM 9.3 mg/dL (8.5-10.3); CREATININE 0.7 mg/dL (0.6-1.2); TOTAL PROTEIN 7.3 g/dL (6.7-8.2)
[2018-11-18 19:53] LABS: HB2 TOTAL 16.8 g/dL; HEMOGLOBIN A1C 0.58 g/dL; HEMOGLOBIN A1C % 5.3 % (4.6-6.2)
== END 2018-11-18 08:01 | disposition home or self-care (01) ==
LOC: LAB.WCP 08:00
PROVIDERS: ATTEND Family Medicine
DX: E78.5 Hyperlipidemia, unspecified (principal); R73.01 Impaired fasting glucose; R51 Headache
CPT/HCPCS: 36415; 80053; 83036; 84443; 85025

== ENCOUNTER 2019-03-06 14:18 | Emergency (ER) | payer MEDICARE, MEDICAID ==
[2019-03-06 14:35] VITALS: BP 141/78
[2019-03-06] MEDS ORDERED: CHERRY SYRUP 10 ML UDC PO ONE (15:46)
[2019-03-06] MEDS ORDERED: DEXAMETHASONE 10 MG/ML VIAL PO STA (15:46)
[2019-03-06] MEDS ORDERED: KETOROLAC 60 MG/2 ML VIAL IM STA (15:47)
--- NOTE | 2019-03-06 15:50 | ED Physician Documentation ---
PD HPI NECK PAIN - Stated complaint Stated Complaint: SHOULDER/NECK PX - Chief complaint Chief Complaint: Ext Problem - History obtained from History obtained from: Patient - History of Present Illness Timing - onset: How many days ago (3) Timing - duration: Days (3) Timing - details: Gradual onset, Still present Location: Lower, Right, Left Quality: Pain, Spasm, Sharp, Similar to prior episodes Associated symptoms: Numbness (to sides of scalp). No: Fever, Weakness, Inconti nent of urine, Unable to urinate, Hematuria, Incontinent of stool Improves with: Rest, Position Similar symptoms before: Diagnosis (cervical spine DJD) Recently seen: Not recently seen - Additional information Additional information: 43-year-old male with cervical spine DJD and a prior history of headaches related to cervical muscle spasm has developed pain in his neck on both sides at the base of his skull. He has had this previously a number of times and he went to call his doctor he was told to come to the emergency department for evaluation Review of Systems Constitutional: denies: Fever Eyes: denies: Decreased vision Ears: denies: Ear pain Nose: denies: Rhinorrhea / runny nose, Congestion Throat: denies: Sore throat Cardiac: denies: Chest pain / pressure, Palpitations Respiratory: denies: Dyspnea, Cough GI: reports: Diarrhea (once last week). denies: Nausea, Vomiting : denies: Dysuria, Frequency Skin: denies: Rash Musculoskeletal: reports: Neck pain. denies: Back pain, Extremity pain Neurologic: denies: Generalized weakness, Focal weakness, Numbness, Headache PD PAST MEDICAL HISTORY - Past Medical History Past Medical History: Yes Cardiovascular: None Respiratory: Asthma Endocrine/Autoimmune: None GI: None : Kidney stones HEENT: None Psych: None Musculoskeletal: None Derm: None - Past Surgical History Past Surgical History: Yes - Present Medications Home Medications: Ambulatory Orders Medication Instructions Recorded Confirmed Ibuprofen [Motrin] 800 mg PO Q8H PRN #30 tablet 03/30/17 07/10/17 Butalb/Acetaminophen/Caffeine 1 each PO Q4H PRN #15 capsule 08/06/18 [Fioricet 50-300-40 mg Capsule] Meloxicam [Mobic] 7.5 mg PO BID PRN #20 tablet 08/06/18 Cyclobenzaprine [Flexeril] 10 mg PO TID PRN #20 tablet 03/06/19 Hydrocodone/Acetaminophen 1 - 2 each PO Q6H PRN #14 tablet 03/06/19 [Hydrocodon-Acetaminophen 5-325] - Allergies Allergies/Adverse Reactions: Allergies Allergy/AdvReac Type Severity Reaction Status Date / Time Penicillins Allergy Mild Rash Verified 03/06/19 14:29 amoxicillin [Amoxicillin] AdvReac Intermediate Emesis Verified 03/06/19 14:29 amoxicillin trihydrate * AdvReac Intermediate Emesis Verified 03/06/19 14:29 [From Augmentin] potassium clavulanate * AdvReac Intermediate Emesis Verified 03/06/19 14:29 [From Augmentin] - Social History Does the pt smoke?: No Smoking Status: Never smoker Does the pt drink ETOH?: No Does the pt have substance abuse?: No - Immunizations Immunizations are current?: No Immunizations: TDAP >10years/unknown - POLST Patient has POLST: No PD ED PE NORMAL - Vitals Vital signs reviewed: Yes (hypertensive mild ) - General General: Alert and oriented X 3, No acute distress, Well developed/nourished - HEENT HEENT: Atraumatic, PERRL, EOMI - Neck Neck: Supple, no meningeal sign, No bony TTP, Other (There is point tenderness and firm muscles to the trapezius at the insertion to the occiput. The patient has very good ROM to the neck and this does not seem to hurt the patient. ) - Respiratory Respiratory: No respiratory distress - Derm Derm: Normal color, Warm and dry, No rash - Extremities Extremities: No deformity, No edema - Neuro Neuro: Alert and oriented X 3, test data developer 2-12 intact, No motor deficit, No sensory deficit, Normal speech Eye Opening: Spontaneous Motor: Obeys Commands Verbal: Oriented GCS Score: 15 - Psych Psych: Normal mood, Normal affect Results - Vitals Vitals: Vital Signs - 24 hr 03/06/19 14:29 Temperature 36.5 C Heart Rate 70 Respiratory 16 Rate Blood Pressure 141/78 H O2 Saturation 97 Oxygen O2 Source Room air PD MEDICAL DECISION MAKING - ED course Complexity details: reviewed old records, reviewed results, re-evaluated patient, considered differential, d/w patient ED course: 43-year-old male with cervical DJD has pain in his neck with muscle spasm at the base of the skull. He appears to move his neck quite well and he is administered dexamethasone 10 mg orally and toradal 60mg IM. We will place him on some pain medication a muscle relaxant. Departure - Departure Disposition: 01 Home, Self Care Clinical Impression: Neck muscle spasm Condition: Stable Instructions: Muscles Neck Follow-Up: Jasper Greene MD [Primary Care Provider] - Prescriptions: Cyclobenzaprine [Flexeril] 10 mg PO TID PRN #20 tablet PRN Reason: Spasms Hydrocodone/Acetaminophen [Hydrocodon-Acetaminophen 5-325] 1 - 2 each PO Q6H PRN #14 tablet PRN Reason: pain
== END 2019-03-06 16:06 | disposition home or self-care (01) ==
LOC: ED 14:18
DX: M62.830 Muscle spasm of back (principal); M47.812 Spondylosis without myelopathy or radiculopathy, cervical region
CPT/HCPCS: 96372; 99283

== ENCOUNTER 2019-04-22 10:00 | Outpatient (CLI) | payer MEDICARE, MEDICAID ==
--- NOTE | 2019-04-22 14:30 | XRAY Report ---
Reason: HEMOPTYSIS, REACTIVE AIRWAY DISEASE Procedure Date: 04/22/2019 Accession Number: [id number] / [id number] Procedure: WCP - Chest 2 View X-Ray CPT Code: 18400 Final Report FULL RESULT: EXAM: CHEST RADIOGRAPHY EXAM DATE: 04/22/2019 10:00 AM. CLINICAL HISTORY: Hemoptysis, reactive airway disease. COMPARISON: CHEST 2 VIEW PA/LAT 09/30/2015 1:54 PM. TECHNIQUE: 2 views. FINDINGS: Lungs/Pleura: No focal opacities evident. No pleural effusion. No pneumothorax. Normal volumes. Mediastinum: Heart and mediastinal contours are unremarkable. Other: None. IMPRESSION: Normal 2-view chest radiography. [facility]
== END 2019-04-22 23:59 | disposition home or self-care (01) ==
LOC: DI.WCP 10:00
PROVIDERS: ATTEND Family Medicine
DX: R04.2 Hemoptysis (principal); J45.998 Other asthma
CPT/HCPCS: 71046

== ENCOUNTER 2019-05-23 11:13 | Outpatient (CLI) | payer MEDICARE, MEDICAID ==
[2019-05-23 18:53] LABS: BASOPHILS % (AUTO) 0.7 %; EOSINOPHILS # (AUTO) 0.1 10^3/uL (0.0-0.7); EOSINOPHILS % (AUTO) 1.2 %; HGB - HEMOGLOBIN 14.9 g/dL (14.0-18.0); LYMPHOCYTES # (AUTO) 1.4 10^3/uL (1.5-3.5); LYMPHOCYTES % (AUTO) 34.7 %; MEAN CORPUSCULAR HEMOGLOBIN 30.1 pg (27.0-31.0); MEAN CORPUSCULAR HGB CONC 32.1 g/dL (32.0-36.0); MEAN CORPUSCULAR VOLUME 93.7 fL (80.0-94.0); MEAN PLATELET VOLUME 10.2 fL (7.4-11.4); MONOCYTES # (AUTO) 0.5 10^3/uL (0.0-1.0); MONOCYTES % (AUTO) 11.7 %; NEUTROPHILS # (AUTO) 2.1 10^3/uL (1.5-6.6); NEUTROPHILS % (AUTO) 51.5 %; PLT - PLATELET COUNT 217 10^3/uL (130-450); RED BLOOD COUNT 4.95 10^6/uL (4.70-6.10); RED CELL DISTRIBUTION WIDTH 12.6 % (12.0-15.0)
[2019-05-23 19:20] LABS: ALBUMIN 4.6 g/dL (3.2-5.5); ALBUMIN/GLOBULIN RATIO 1.8 (1.0-2.2); ALKALINE PHOSPHATASE 59 IU/L (42-121); ALT ALANINE AMINOTRANSFERASE 51 IU/L (10-60); AST ASPARTATE AMINOTRANSFERASE 41 IU/L (10-42); BILIRUBIN,TOTAL 0.8 mg/dL (0.2-1.0); BUN - BLOOD UREA NITROGEN 17 mg/dL (6-20); CALCIUM 9.2 mg/dL (8.5-10.3); CARBON DIOXIDE - CO2 29 mmol/L (21-32); CHLORIDE 102 mmol/L (101-111); CHOL/HDL RATIO 6.8 (<5.0); CHOLESTEROL 250 mg/dL; CREATININE 0.6 mg/dL (0.6-1.2); GFR - MDRD 146 (>89); GLUCOSE 95 mg/dL (70-100); HDL CHOLESTEROL 37 mg/dL; LDL CHOLESTEROL,CALCULATED 172 mg/dL; LDL/HDL RATIO 4.6 (<3.6); SODIUM 139 mmol/L (135-145); TOTAL PROTEIN 7.1 g/dL (6.7-8.2); URIC ACID 7.9 mg/dL (2.6-7.2); VLDL CHOLESTEROL 41 mg/dL
== END 2019-05-23 23:59 | disposition home or self-care (01) ==
LOC: LAB.WCP 11:13
PROVIDERS: ATTEND Family Medicine
DX: N20.0 Calculus of kidney (principal); E78.5 Hyperlipidemia, unspecified; Z12.5 Encounter for screening for malignant neoplasm of prostate; R73.01 Impaired fasting glucose
CPT/HCPCS: 36415; 80053; 80061; 84443; 84550; 85025; G0103; 83721; 84153

== ENCOUNTER → 2020-01-05 | Outpatient (CLI) | payer MEDICARE, MEDICAID ==
[2020-01-05 18:11] LABS: BUN - BLOOD UREA NITROGEN 19 mg/dL (6-20); CALCIUM 9.4 mg/dL (8.5-10.3); CARBON DIOXIDE - CO2 28 mmol/L (21-32); CHLORIDE 103 mmol/L (101-111); CHOL/HDL RATIO 6.8 (<5.0); CHOLESTEROL 258 mg/dL; CREATININE 0.7 mg/dL (0.6-1.2); GLUCOSE 89 mg/dL (70-100); HDL CHOLESTEROL 38 mg/dL; LDL CHOLESTEROL,CALCULATED 189 mg/dL; SODIUM 139 mmol/L (135-145); VLDL CHOLESTEROL 31 mg/dL
== END ==
LOC: LAB.WCP 08:00
PROVIDERS: ATTEND Family Medicine
DX: E78.5 Hyperlipidemia, unspecified (principal); R03.0 Elevated blood-pressure reading, without diagnosis of hypertension
CPT/HCPCS: 36415; 80048; 80061; 83721

== ENCOUNTER 2020-06-26 14:58 | Emergency (ER) | payer MEDICARE, MEDICAID ==
[2020-06-26] MEDS ORDERED: ONDANSETRON 4 MG/2 ML VIAL IVP STA (15:15)
[2020-06-26] MEDS ORDERED: KETOROLAC 30 MG/ML VIAL IVP STA (15:15)
--- NOTE | 2020-06-26 15:17 | ED Physician Documentation ---
PD HPI ABD PAIN - Stated complaint Stated Complaint: ABD/BACK PX - Chief complaint Chief Complaint: Abd Pain - History obtained from History obtained from: Patient - Additional information Additional information: 44-year-old gentleman with recurrent renal colic. Last episode was about 3 years ago. Has required interventions in the past for same. Developed bilateral severe flank pain with severe nausea today. No hematuria or urinary complaints. Pain does not seem to lateralize but that said he has feels it is consistent with prior episodes of renal colic. Review of Systems Constitutional: denies: Fever, Chills GI: reports: Abdominal Pain, Nausea, Vomiting : denies: Dysuria, Frequency, Hesitancy PD PAST MEDICAL HISTORY - Past Medical History Cardiovascular: None Respiratory: Asthma Endocrine/Autoimmune: None GI: None : Kidney stones HEENT: None Psych: None Musculoskeletal: None Derm: None - Past Surgical History Past Surgical History: Yes - Present Medications Home Medications: Ambulatory Orders Medication Instructions Recorded Confirmed Ibuprofen [Motrin] 800 mg PO Q8H PRN #30 tablet 03/30/17 07/10/17 Butalb/Acetaminophen/Caffeine 1 each PO Q4H PRN #15 capsule 08/06/18 [Fioricet 50-300-40 mg Capsule] Meloxicam [Mobic] 7.5 mg PO BID PRN #20 tablet 08/06/18 Cyclobenzaprine [Flexeril] 10 mg PO TID PRN #20 tablet 03/06/19 Hydrocodone/Acetaminophen 1 - 2 each PO Q6H PRN #14 tablet 03/06/19 [Hydrocodon-Acetaminophen 5-325] Ondansetron Odt [Zofran] 4 mg TL Q6H PRN #10 tablet 06/26/20 - Allergies Allergies/Adverse Reactions: Allergies Allergy/AdvReac Type Severity Reaction Status Date / Time Penicillins Allergy Mild Rash Verified 06/26/20 15:01 amoxicillin [Amoxicillin] AdvReac Intermediate Emesis Verified 06/26/20 15:01 amoxicillin trihydrate * AdvReac Intermediate Emesis Verified 06/26/20 15:01 [From Augmentin] potassium clavulanate * AdvReac Intermediate Emesis Verified 06/26/20 15:01 [From Augmentin] - Social History Does the pt smoke?: No Smoking Status: Never smoker Does the pt drink ETOH?: No Does the pt have substance abuse?: No - Immunizations Immunizations are current?: No Immunizations: TDAP >10years/unknown - POLST Patient has POLST: No PD ED PE NORMAL - Vitals Vital signs reviewed: Yes - General General: Alert and oriented X 3, No acute distress - Abdomen Abdomen: Soft, Non tender - Back Back: No CVA TTP - Derm Derm: Normal color, Warm and dry, No rash - Neuro Neuro: Alert and oriented X 3, Normal speech Results - Vitals Vitals: Vital Signs - 24 hr 06/26/20 06/26/20 06/26/20 15:01 15:45 16:18 Temperature 36.3 C L Heart Rate 80 77 75 Respiratory 16 18 Rate Blood Pressure 152/85 H 144/72 H O2 Saturation 100 100 99 Oxygen O2 Source Room air - Labs Labs: Laboratory Tests 06/26/20 06/26/20 14:40 15:15 Sodium 137 Potassium 3.7 Chloride 97 L Carbon Dioxide 27 Anion Gap 13.0 BUN 20 Creatinine 0.9 Estimated GFR (MDRD) 91 Glucose 91 Calcium 9.5 Urine Color LT. YELLOW Urine Clarity CLEAR Urine pH 7.0 Ur Specific [place] <=1.005 Urine Protein NEGATIVE Urine Glucose (UA) NEGATIVE Urine Ketones NEGATIVE Urine Occult Blood TRACE-INTA Urine Nitrite NEGATIVE Urine Bilirubin NEGATIVE Urine Urobilinogen 0.2 (NORMAL) Ur Leukocyte Esterase NEGATIVE Ur Microscopic Review NOT INDICATED Urine Culture Comments NOT INDICATED PD MEDICAL DECISION MAKING - ED course ED course: 44yo gentleman with back pain and nausea. He felt it was consistent with prior episodes of renal colic but the lack of lateralization did not seem consistent with that to me. His work-up here was negative with no evidence of ureterolith on CT and a normal urinalysis. He declined pain medication other than Toradol and appeared comfortable appearing prior to discharge with improved nausea. Departure - Departure Disposition: 01 Home, Self Care Clinical Impression: Back pain Qualifiers: Back pain location: low back pain Chronicity: acute Back pain laterality: bilateral Sciatica presence: without sciatica Qualified Code(s): M54.5 - Low back pain Vomiting Qualifiers: Vomiting type: unspecified Vomiting Intractability: non-intractable Nausea presence: with nausea Qualified Code(s): R11.2 - Nausea with vomiting, unspecified Condition: Good Record reviewed to determine appropriate education?: Yes Instructions: ED Neck Back Pain General Prescriptions: Ondansetron Odt [Zofran] 4 mg TL Q6H PRN #10 tablet PRN Reason: Nausea / Vomiting Comments: You still have some stones up in your kidneys that may bother you some day, there is no stone in the ureter or bladder to give a current cause of pain, that in combination with the bilateral nature of the pain suggest that it is probably just a simple muscular backache. Return for new or worsening symptoms or if worsening. Follow-up with your doctor next week if not better. Discharge Date/Time: 06/26/20 16:18
[2020-06-26 15:20] LABS: BILIRUBIN,URINE NEGATIVE (NEGATIVE); GLUCOSE, URINE (UA) NEGATIVE (NEGATIVE); KETONES,URINE (UA) NEGATIVE (NEGATIVE); LEUKOCYTE ESTERASE, URINE NEGATIVE (NEGATIVE); NITRITE,URINE NEGATIVE (NEGATIVE); OCCULT BLOOD,URINE TRACE-INTA (NEGATIVE); PROTEIN,URINE NEGATIVE (NEGATIVE); UROBILINOGEN,URINE 0.2 (NORMAL) E.U./dL (NORMAL)
[2020-06-26 15:29] LABS: CLARITY,URINE CLEAR (CLEAR)
[2020-06-26 15:39] LABS: CALCIUM 9.5 mg/dL (8.5-10.3); CREATININE 0.9 mg/dL (0.6-1.2)
--- NOTE | 2020-06-26 16:01 | CT Report ---
PROCEDURE: Abdomen/Pelvis WO INDICATIONS: flank pain, kidney stone suspected TECHNIQUE: Noncontrast 5 mm thick sections acquired from the diaphragms to the symphysis. 5 mm coronal and sagi ttal reformats were then performed. For radiation dose reduction, the following was used: automated exposure control, adjustment of mA and/or kV according to patient size. COMPARISON: 02/04/2017, 03/30/2017 FINDINGS: Image quality: Excellent. ABDOMEN: Lung bases: Lung bases are clear. Heart size is normal. Solid organs: Liver and spleen are normal in size. Gallbladder wall does not appear thickened. P ancreas is normal in contours. No adrenal nodules. The kidneys demonstrate normal size. Nonobstructing bilateral renal stones are seen, measuring up to 7 mm on the right and up to 5 mm on the left. No ureteral stones are seen. No hydronephrosis can be s een. Peritoneum and bowel: Unenhanced bowel loops demonstrate normal wall thickness and caliber. No free fluid or air. A normal appendix is incidentally noted. Nodes and vessels: No retroperitoneal or mesenteric adenopathy by size criteria. Aorta and inferior vena cava are normal in caliber. Miscellaneous: No ventral hernias. PELVIS: Genitourinary: Bladder wall thickness is normal. Miscellaneous: No inguinal hernias or adenopathy. Bones: No suspicious bony lesions. No vertebral body compression fractures. Degenerative changes a re seen, which are most prominent involving the lower lumbar spine. IMPRESSION: Nonobstructing bilateral renal stones are seen. No hydronephrosis or ureteral stones are seen. Incidental note is made of: Normal appendix Focal lower lumbar spine degenerative change Reviewed by: Daniel Wallace MD on 06/26/2020 3:00 PM [place] Approved by: Daniel Wallace MD on 06/26/2020 3:00 PM [place] Station ID: [id number]
[2020-06-26 16:19] VITALS: BP 144/72
== END 2020-06-26 16:18 | disposition home or self-care (01) ==
LOC: ED 14:58
DX: M54.5 Low back pain (principal); R11.2 Nausea with vomiting, unspecified
CPT/HCPCS: 36415; 74176; 80048; 81001; 81003; 87086; 96374; 99284

== ENCOUNTER 2020-09-21 14:50 | Emergency (ER) | payer MEDICARE, MEDICAID ==
[2020-09-21] MEDS ORDERED: HYDROmorphone 1 MG/ML CARPUJECT IM STA (16:11)
[2020-09-21] MEDS ORDERED: CHERRY SYRUP 10 ML UDC PO ONE (16:12)
[2020-09-21] MEDS ORDERED: DEXAMETHASONE 10 MG/ML VIAL PO STA (16:12)
--- NOTE | 2020-09-21 16:16 | ED Physician Documentation ---
History of Present Illness - Stated complaint Stated Complaint: NECK PAIN - Chief complaint Chief Complaint: General - Additonal information Additional information: 44-year-old male presents to the emergency department for evaluation of acute right-sided chest pain that began about 3 hours prior to arrival. He reports a history of degenerative disc disease in the cervical spine and occasionally gets spasms in his neck that radiate to his cranium. has been seen for this similarly in the past. Has had no falls or trauma. No recent fevers. Denies paresthesias or arm weakness. Review of Systems Constitutional: reports: Reviewed and negative Ears: reports: Reviewed and negative Nose: reports: Reviewed and negative Throat: reports: Reviewed and negative Cardiac: reports: Reviewed and negative Respiratory: reports: Reviewed and negative GI: reports: Reviewed and negative : reports: Reviewed and negative Skin: reports: Reviewed and negative Musculoskeletal: reports: Neck pain Neurologic: reports: Headache Psychiatric: reports: Reviewed and negative Endocrine: reports: Reviewed and negative PD PAST MEDICAL HISTORY - Past Medical History Cardiovascular: None Respiratory: Asthma Endocrine/Autoimmune: None GI: None : Kidney stones HEENT: None Psych: None Musculoskeletal: None Derm: None - Past Surgical History Past Surgical History: Yes - Present Medications Home Medications: Ambulatory Orders Medication Instructions Recorded Confirmed Ibuprofen [Motrin] 800 mg PO Q8H PRN #30 tablet 03/30/17 07/10/17 Butalb/Acetaminophen/Caffeine 1 each PO Q4H PRN #15 capsule 08/06/18 [Fioricet 50-300-40 mg Capsule] Meloxicam [Mobic] 7.5 mg PO BID PRN #20 tablet 08/06/18 Cyclobenzaprine [Flexeril] 10 mg PO TID PRN #20 tablet 03/06/19 Hydrocodone/Acetaminophen 1 - 2 each PO Q6H PRN #14 tablet 03/06/19 [Hydrocodon-Acetaminophen 5-325] Ondansetron Odt [Zofran] 4 mg TL Q6H PRN #10 tablet 06/26/20 Cyclobenzaprine [Flexeril] 10 mg PO TID PRN #20 tablet 09/21/20 Ibuprofen [Motrin] 600 mg PO Q6H PRN #30 tab 09/21/20 - Allergies Allergies/Adverse Reactions: Allergies Allergy/AdvReac Type Severity Reaction Status Date / Time Penicillins Allergy Mild Rash Verified 09/21/20 14:59 amoxicillin [Amoxicillin] AdvReac Intermediate Emesis Verified 09/21/20 14:59 amoxicillin trihydrate * AdvReac Intermediate Emesis Verified 09/21/20 14:59 [From Augmentin] potassium clavulanate * AdvReac Intermediate Emesis Verified 09/21/20 14:59 [From Augmentin] - Social History Does the pt smoke?: No Smoking Status: Never smoker Does the pt drink ETOH?: No Does the pt have substance abuse?: No - Immunizations Immunizations are current?: No Immunizations: TDAP >10years/unknown - POLST Patient has POLST: No PD ED PE EXPANDED - General General: Alert, No acute distress - Neck Neck: No: Stiff neck, No tenderness (Mild tenderness the right paraspinous cervical muscles with radiation to the cranium and down the trapezius. Subtle s pasm is appreciated after right lateral rotation. Normal forward extension and flexion.), Bony TTP, Limited ROM - Extremities Extremities: Other (No paresthesias of bilateral upper extremities. No loss of motor strength. Normal movement of the shoulders elbows and hands bilaterally.) Results - Vitals Vitals: Vital Signs - 24 hr 09/21/20 15:00 Temperature 36.2 C L Heart Rate 85 Respiratory 18 Rate Blood Pressure 146/83 H O2 Saturation 100 Oxygen O2 Source Room air PD MEDICAL DECISION MAKING - ED course Complexity details: re-evaluated patient, d/w patient ED course: 44-year-old male presents emergency department for evaluation of acute right- sided neck pain that has had similar in the past and associates with spasms. This gentleman was given 1 mg of Dilaudid here in the emergency department as well as 10 mg of Decadron. Following the Dilaudid administration he had marked relief of the pain. Will recommend a short course of a muscle relaxer at home as well as NSAID medication. Emergent return precautions were discussed. Departure - Departure Disposition: 01 Home, Self Care Clinical Impression: Neck pain on right side Condition: Stable Record reviewed to determine appropriate education?: Yes Instructions: ED Neck Pain No Trauma Prescriptions: Cyclobenzaprine [Flexeril] 10 mg PO TID PRN #20 tablet PRN Reason: Spasms Ibuprofen [Motrin] 600 mg PO Q6H PRN #30 tab PRN Reason: Pain Comments: You were seen in the emergency department for Right-sided neck pain. This is most likely spasm that may be related to year degenerative disc disease. You were given an injection of Dilaudid here in the emergency department as well as Decadron which is a steroid that should help with pain and inflammation over the next 48 to 72 hours. I will recommend that you take a muscle relaxer especially before you go to bed at night. Please be careful with this it can make you sleepy and unsafe to drive. I also recommend that you take Tylenol or ibuprofen [id number] for neck discomfort. Return to the emergency department with severe worsening pain, weakness in your arms or inability to turn your neck.
[2020-09-21 17:15] VITALS: BP 143/94
== END 2020-09-21 17:20 | disposition home or self-care (01) ==
LOC: ED 14:50
DX: M54.2 Cervicalgia (principal)
CPT/HCPCS: 96372; 99283; A9270; J1170

== ENCOUNTER 2021-05-02 14:16 | Outpatient (CLI) | payer MEDICARE, MEDICAID ==
[2021-05-02 18:37] LABS: ALBUMIN 4.9 g/dL (3.2-5.5); ALBUMIN/GLOBULIN RATIO 1.9 (1.0-2.2); BILIRUBIN,TOTAL 0.8 mg/dL (0.2-1.0); CALCIUM 9.5 mg/dL (8.5-10.3); CREATININE 0.8 mg/dL (0.6-1.2); POTASSIUM 4.1 mmol/L (3.5-5.0); TOTAL PROTEIN 7.5 g/dL (6.7-8.2)
[2021-05-03 11:01] LABS: HEPATITIS B SURFACE ANTIGEN NON-REACTIVE (NON-REACTIVE); HEPATITIS C ANTIBODY NON-REACTIVE (NON-REACTIVE)
== END 2021-05-02 23:59 | disposition home or self-care (01) ==
LOC: LAB.WCP 14:16
PROVIDERS: ATTEND Family Medicine
DX: R79.89 Other specified abnormal findings of blood chemistry (principal)
CPT/HCPCS: 36415; 80053; 82977; 86317; 86704; 86709; 86803; 87340

== ENCOUNTER 2022-10-18 08:00 | Outpatient (CLI) | payer MEDICARE, MEDICAID ==
[2022-10-18 20:54] LABS: BASOPHILS % (AUTO) 0.4 %; EOSINOPHILS % (AUTO) 0.6 %; HCT - HEMATOCRIT 47.2 % (42.0-52.0); HGB - HEMOGLOBIN 15.9 g/dL (14.0-18.0); LYMPHOCYTES # (AUTO) 1.6 10^3/uL (1.5-3.5); LYMPHOCYTES % (AUTO) 28.8 %; MEAN CORPUSCULAR HEMOGLOBIN 31.6 pg (27.0-31.0); MEAN CORPUSCULAR HGB CONC 33.7 g/dL (32.0-36.0); MEAN CORPUSCULAR VOLUME 93.8 fL (80.0-94.0); MONOCYTES # (AUTO) 0.4 10^3/uL (0.0-1.0); MONOCYTES % (AUTO) 7.8 %; NEUTROPHILS # (AUTO) 3.4 10^3/uL (1.5-6.6); NEUTROPHILS % (AUTO) 62.2 %; PLT - PLATELET COUNT 222 10^3/uL (130-450); RED BLOOD COUNT 5.03 10^6/uL (4.70-6.10); RED CELL DISTRIBUTION WIDTH 11.9 % (12.0-15.0); WHITE BLOOD COUNT 5.4 x10^3/uL (4.8-10.8)
[2022-10-18 21:08] LABS: ALBUMIN 4.8 g/dL (3.2-5.5); ALBUMIN/GLOBULIN RATIO 1.5 (1.0-2.2); ALKALINE PHOSPHATASE 64 IU/L (42-121); ALT ALANINE AMINOTRANSFERASE 57 IU/L (10-60); AST ASPARTATE AMINOTRANSFERASE 40 IU/L (10-42); BILIRUBIN,TOTAL 0.5 mg/dL (0.2-1.0); BUN - BLOOD UREA NITROGEN 13 mg/dL (6-20); CALCIUM 9.6 mg/dL (8.5-10.3); CARBON DIOXIDE - CO2 28 mmol/L (21-32); CHLORIDE 101 mmol/L (101-111); CHOL/HDL RATIO 4.9 (<5.0); CHOLESTEROL 170 mg/dL; CREATININE 0.7 mg/dL (0.6-1.2); GFR - MDRD 120 (>89); GLUCOSE 87 mg/dL (70-100); HDL CHOLESTEROL 35 mg/dL; LDL CHOLESTEROL,CALCULATED 77 mg/dL; LDL/HDL RATIO 2.2 (<3.6); LIPASE 32 U/L (22-51); POTASSIUM 4.2 mmol/L (3.5-5.0); SODIUM 138 mmol/L (135-145); TOTAL PROTEIN 7.9 g/dL (6.7-8.2); TRIGLYCERIDES 288 mg/dL; VLDL CHOLESTEROL 58 mg/dL
[2022-10-18 21:13] LABS: ESTIMATED AVERAGE GLUCOSE 103 mg/dL (70-100); HEMOGLOBIN A1c% 5.2 % (4.27-6.07)
== END 2022-10-18 23:59 | disposition home or self-care (01) ==
LOC: LAB.N 08:00
PROVIDERS: ATTEND Registered Nurse
DX: R10.9 Unspecified abdominal pain (principal)
CPT/HCPCS: 36415; 80053; 80061; 83036; 83690; 83721; 85025

== ENCOUNTER 2022-11-25 06:48 | Outpatient (CLI) | payer MEDICARE, MEDICAID | END 2022-11-25 06:49 | disposition critical access hospital (66) | LOC: EMS 06:48 | DX: R10.31 Right lower quadrant pain (principal); R10.32 Left lower quadrant pain; R11.10 Vomiting, unspecified | CPT/HCPCS: A0425; A0429 ==

== ENCOUNTER 2022-11-25 07:06 | Emergency (ER) | payer MEDICARE, MEDICAID ==
[2022-11-25] MEDS ORDERED: SODIUM CHLORIDE 0.9% 1,000 ML IV STA (07:20)
[2022-11-25] MEDS ORDERED: ONDANSETRON 4 MG/2 ML VIAL IVP STA (07:21)
--- NOTE | 2022-11-25 07:21 | ED Physician Documentation ---
PD HPI ABD PAIN - Stated complaint Stated Complaint: ABD/BACK PX - History obtained from History obtained from: Patient, EMS - History of Present Illness Timing - onset: How many days ago (ffew) Timing - duration: Days (ew) Timing - details: Abrupt onset, Still present, Waxing and waning Quality: Cramping, Aching, Pain Location: LLQ Radiation: Left flank Improved by: No: Laying still, Position Worsened by: No: Moving, Breathing, Position Associated symptoms: Nausea, Dysuria. No: Fever, Vomiting, Diarrhea, Hematuria Similar symptoms before: Has not had sx before Recently seen: Clinic (walk in clinic couple days ago, with UA and labs. Rx with keflex for possible UTI but the culture resulted negative.) Review of Systems Constitutional: denies: Fever, Chills GI: reports: Abdominal Pain, Nausea. denies: Abdominal Swelling, Vomiting, Constipation, Diarrhea : reports: Frequency, Hematuria. denies: Discharge Skin: denies: Rash PD PAST MEDICAL HISTORY - Past Medical History Cardiovascular: None Respiratory: Asthma Neuro: Headaches Endocrine/Autoimmune: None GI: None : Kidney stones HEENT: None Psych: None Musculoskeletal: None Derm: None - Past Surgical History Past Surgical History: Yes - Present Medications Home Medications: Ambulatory Orders Medication Instructions Recorded Confirmed Ibuprofen [Motrin] 800 mg PO Q8H PRN #30 tablet 03/30/17 07/10/17 Butalb/Acetaminophen/Caffeine 1 each PO Q4H PRN #15 capsule 08/06/18 [Fioricet 50-300-40 mg Capsule] Meloxicam [Mobic] 7.5 mg PO BID PRN #20 tablet 08/06/18 Cyclobenzaprine [Flexeril] 10 mg PO TID PRN #20 tablet 03/06/19 Hydrocodone/Acetaminophen 1 - 2 each PO Q6H PRN #14 tablet 03/06/19 [Hydrocodon-Acetaminophen 5-325] Ondansetron Odt [Zofran] 4 mg TL Q6H PRN #10 tablet 06/26/20 Cyclobenzaprine [Flexeril] 10 mg PO TID PRN #20 tablet 09/21/20 Ibuprofen [Motrin] 600 mg PO Q6H PRN #30 tab 09/21/20 Naproxen 500 mg PO BID #20 tab 06/17/23 Ondansetron Odt [Zofran] 4 mg TL Q6H PRN #10 tablet 11/25/22 Promethazine [Phenergan] 25 mg PO Q6H PRN #15 tab 11/25/22 oxyCODONE [Roxicodone] 5 mg PO Q6H PRN #20 tablet 11/25/22 - Allergies Allergies/Adverse Reactions: Allergies Allergy/AdvReac Type Severity Reaction Status Date / Time Penicillins Allergy Mild Rash Verified 11/25/22 07:21 amoxicillin [Amoxicillin] AdvReac Intermediate Emesis Verified 11/25/22 07:21 amoxicillin trihydrate * AdvReac Intermediate Emesis Verified 11/25/22 07:21 [From Augmentin] potassium clavulanate * AdvReac Intermediate Emesis Verified 11/25/22 07:21 [From Augmentin] - Social History Does the pt smoke?: No Smoking Status: Never smoker Does the pt drink ETOH?: No Does the pt have substance abuse?: No - Immunizations Immunizations are current?: No Immunizations: TDAP >10years/unknown - POLST Patient has POLST: No PD ED PE NORMAL - Vitals Vital signs reviewed: Yes - General General: Alert and oriented X 3, No acute distress, Well developed/nourished - Cardiac Cardiac: RRR, No murmur - Respiratory Respiratory: Clear bilaterally - Abdomen Abdomen: Normal bowel sounds, Soft, Non distended, Other (some tenderness left lateral abdomen mid and lower, without guarding nor percussion/rebound te nderness. ) - Male Male : Deferred - Rectal Rectal: Deferred - Back Back: No spinal TTP, Other (left flank with percussion tenderness. No rash nor sores. ) - Derm Derm: Normal color, Warm and dry, No rash Results - Vitals Vitals: Vital Signs - 24 hr 11/25/22 11/25/22 07:19 09:54 Temperature 36.7 C Heart Rate 80 78 Respiratory 20 20 Rate Blood Pressure 162/125 H O2 Saturation 98 98 Oxygen O2 Source Room air - Labs Labs: Laboratory Tests 11/25/22 11/25/22 11/25/22 07:25 07:25 09:20 WBC 6.4 RBC 4.99 Hgb 15.4 Hct 45.8 MCV 91.8 MCH 30.9 MCHC 33.6 RDW 11.8 L Plt Count 212 MPV 10.0 Neut # (Auto) 4.9 Lymph # (Auto) 1.0 L Isabella # (Auto) 0.5 Eos # (Auto) 0.0 Baso # (Auto) 0.0 Absolute Nucleated RBC 0.00 Nucleated RBC % 0.0 Sodium 140 Potassium 3.8 Chloride 101 Carbon Dioxide 30 Anion Gap 9.0 BUN 22 H Creatinine 0.9 Estimated GFR (MDRD) 90 Glucose 130 H Calcium 9.7 Total Bilirubin 0.5 AST 34 ALT 49 Alkaline Phosphatase 65 Total Protein 7.8 Albumin 4.7 Globulin 3.1 Albumin/Globulin Ratio 1.5 Lipase 28 Urine Color YELLOW Urine Clarity CLEAR Urine pH 5.5 Ur Specific Henderson <=1.005 Urine Protein TRACE Urine Glucose (UA) NEGATIVE Urine Ketones NEGATIVE Urine Occult Blood LARGE H Urine Nitrite NEGATIVE Urine Bilirubin NEGATIVE Urine Urobilinogen 0.2 (NORMAL) Ur Leukocyte Esterase NEGATIVE Urine RBC 0-5 Urine WBC 0-3 Ur Squamous Epith Cells NONE SEEN Urine Bacteria Few Ur Microscopic Review INDICATED Urine Culture Comments NOT INDICATED - Rads (name of study) KUB CT Relevant Findings:: Prelim report reviewed, EMP independent interpretation of test (8 mm proximal urteral stone with hydrourteter but mild only hyudronephrosis. ), See rad report PD Medical Decision Making - ED course Complexity details: reviewed results (he has a large 8 mm stone proximal left ureter, without very much hydronephrosis. So there is flow around the stone, though prox ureter is dilated. He had UA in walk in couple days ago without signs of infection, so not repeated here today. referred to Urology since large enough to likely not pass. ), considered differential (pain improved reasonably with IV medication of Toradol and Dilaudid, with zofran fro nausea.), d/w patient Drug Therapy Requiring Monitoring for Toxicity: he did okay with IV dilaudid, Zfran and Toradol. Departure - Departure Disposition: 01 Home, Self Care Clinical Impression: Left sided abdominal pain, Ureterolithiasis Condition: Stable Record reviewed to determine appropriate education?: Yes Instructions: ED Stone Renal W Colic Follow-Up: Don Dominguez MD [Provider Admit Priv/Credential] - [facility] [Provider Group] Prescriptions: Naproxen 500 mg PO BID #20 tab Promethazine [Phenergan] 25 mg PO Q6H PRN #15 tab PRN Reason: Nausea / Vomiting oxyCODONE [Roxicodone] 5 mg PO Q6H PRN #20 tablet PRN Reason: Pain Ondansetron Odt [Zofran] 4 mg TL Q6H PRN #10 tablet PRN Reason: Nausea / Vomiting Comments: Your CT scan does show an 8 mm stone in the proximal left ureter. This is a fairly sizable stone and has less likelihood of passing completely but still possible. I would suggest calling to make a follow-up appointment with urologist presuming this will be harder to pass. I did include the name of a new urologist here in [place]. He supposedly is starting in November so see if they are taking new appointments. Otherwise I gave the name of a group and [facility] that also works out of [place]. Stay well-hydrated. Use anti-inflammatories twice daily with food. Add ondansetron if needed for nausea. To that add Tylenol 650 mg 4 times daily. Then add oxycodone every 4-6 hours if needed for worse pain. I sent your prescriptions to your preferred pharmacy. Return to the ER as needed. My narcotic instructions I am prescribing a short course of narcotic pain medication for you. These are potentially dangerous and addictive medications that should be used carefully. These medications may constipate you. Take an cfty-lut-pjyvmoc stool softener such as docusate twice daily with plenty of water while taking these medications. If you go 24 hours without a bowel movement, take qshg-mje-nkvinjl MiraLAX, per package instructions. Do not drink or drive while taking these medications. If you received narcotic or sedating medications while in the emergency department do not drive for 24 hours. Store this medication in a safe, secure place and out of reach of children. It is a violation of federal law to give or sell this medication to another person or to use in a manner other than prescribed. The ED will not refill narcotic prescriptions, including prescriptions lost or stolen. You can dispose of unwanted medications at the [facility] office or at several pharmacies such as [facility]. Discharge Date/Time: 11/25/22 09:59
[2022-11-25] MEDS ORDERED: HYDROmorphone 1 MG/ML CARPUJECT IVP STA (07:22)
[2022-11-25] MEDS ORDERED: KETOROLAC 15 MG/ML VIAL IVP STA (07:22)
[2022-11-25 07:29] VITALS: BP 162/125
[2022-11-25 07:30] LABS: BASOPHILS % (AUTO) 0.5 %; EOSINOPHILS % (AUTO) 0.2 %; HCT - HEMATOCRIT 45.8 % (42.0-52.0); HGB - HEMOGLOBIN 15.4 g/dL (14.0-18.0); LYMPHOCYTES % (AUTO) 15.4 %; MEAN CORPUSCULAR HEMOGLOBIN 30.9 pg (27.0-31.0); MEAN CORPUSCULAR HGB CONC 33.6 g/dL (32.0-36.0); MEAN CORPUSCULAR VOLUME 91.8 fL (80.0-94.0); MONOCYTES # (AUTO) 0.5 10^3/uL (0.0-1.0); MONOCYTES % (AUTO) 7.1 %; NEUTROPHILS # (AUTO) 4.9 10^3/uL (1.5-6.6); NEUTROPHILS % (AUTO) 76.5 %; PLT - PLATELET COUNT 212 10^3/uL (130-450); RED BLOOD COUNT 4.99 10^6/uL (4.70-6.10); RED CELL DISTRIBUTION WIDTH 11.8 % (12.0-15.0); WHITE BLOOD COUNT 6.4 x10^3/uL (4.8-10.8)
[2022-11-25 07:42] LABS: ALBUMIN 4.7 g/dL (3.2-5.5); ALBUMIN/GLOBULIN RATIO 1.5 (1.0-2.2); BILIRUBIN,TOTAL 0.5 mg/dL (0.2-1.0); CALCIUM 9.7 mg/dL (8.5-10.3); CREATININE 0.9 mg/dL (0.6-1.2); POTASSIUM 3.8 mmol/L (3.5-5.0); TOTAL PROTEIN 7.8 g/dL (6.7-8.2)
[2022-11-25] MEDS ORDERED: iohexoL-300 100 ML VIAL ONE (07:42)
[2022-11-25] MEDS ORDERED: iohexoL-300 100 ML VIAL IVP ONE (08:08)
--- NOTE | 2022-11-25 08:43 | CT Report ---
PROCEDURE: ABDOMEN/PELVIS W INDICATIONS: Abdominal pain, acute, left abd CONTRAST: 100 ML OMNI 300 TECHNIQUE: After the administration of intravenous contrast, 5 mm thick sections acquired from the diaphragms to the symphysis. 5 mm thick coronal and sagittal reformats were acquired. For radiation dose reducti on, the following was used: automated exposure control, adjustment of mA and/or kV according to rome ent size. COMPARISON: CT KUB 06/26/2020. FINDINGS: Image quality: Excellent. Lung bases and heart: Basal atelectasis. No pleural effusion. Liver: Hypodense focus near the gallbladder, unchanged. Likely a small cyst or hemangioma. Gallbladder and biliary tree: No radiopaque stones or wall thickening. No biliary dilation. Spleen: No splenomegaly. Pancreas: No pancreatic ductal dilation. Adrenals: No adrenal nodule. Kidneys and ureters: Moderate left hydronephrosis. Obstructing calculus at the left UPJ measuring is 0.7 cm, (). Left perinephric edema. Small low-density left renal cyst. At least 3 additional punc ash nonobstructing left kidney stones. Right kidney inferior pole nonobstructing calculus measuring 0.7 cm. Bowel and peritoneum: No bowel distension. No pathologic free fluid. Normal appendix. Lymph nodes: No central or retroperitoneal adenopathy. Vessels: No infrarenal aortic aneurysm. PELVIS Reproductive organs: Unremarkable. Bladder: No abnormal wall thickening, accounting for underdistention. Pelvic lymph nodes: No pelvic adenopathy by size criteria. Bones: No aggressive osseous abnormality. Other: No significant ventral or inguinal hernia. IMPRESSION: 1. Moderate left hydronephrosis. Obstructing calculus at the left UPJ measuring 0.7 cm. 2. Additional nonobstructing kidney stones bilaterally. Reviewed by: Shashi Watson MD on 11/25/2022 8:42 AM PDT Approved by: Shashi Watson MD on 11/25/2022 8:42 AM PDT Station ID: [id number]
[2022-11-25 09:28] LABS: BILIRUBIN,URINE NEGATIVE (NEGATIVE); GLUCOSE, URINE (UA) NEGATIVE (NEGATIVE); KETONES,URINE (UA) NEGATIVE (NEGATIVE); LEUKOCYTE ESTERASE, URINE NEGATIVE (NEGATIVE); NITRITE,URINE NEGATIVE (NEGATIVE); OCCULT BLOOD,URINE LARGE (NEGATIVE); PH,URINE 5.5 PH (5.0-7.5); PROTEIN,URINE TRACE mg/dL (NEGATIVE); UROBILINOGEN,URINE 0.2 (NORMAL) E.U./dL (NORMAL)
[2022-11-25 09:29] LABS: CLARITY,URINE CLEAR (CLEAR)
[2022-11-25 09:45] LABS: BACTERIA,URINE Few /HPF (None Seen); RBC,URINE 0-5 /HPF (0-5); SQUAMOUS EPITHELIAL CELL,UR NONE SEEN (<= Few); WBC,URINE 0-3 /HPF (0-3)
== END 2022-11-25 09:59 | disposition home or self-care (01) ==
LOC: EDUNIT# → ED 07:06
DX: N20.1 Calculus of ureter (principal); R10.32 Left lower quadrant pain; Z87.442 Personal history of urinary calculi; Z79.899 Other long term (current) drug therapy
CPT/HCPCS: 36415; 74177; 80053; 81001; 83690; 85025; 96374; 99284; 99285; J1170; Q9967; 81003; 87086

== ENCOUNTER 2022-12-07 11:32 | Outpatient (CLI) | payer MEDICARE, MEDICAID ==
[2022-12-07 11:42] LABS: BILIRUBIN,URINE NEGATIVE (NEGATIVE); GLUCOSE, URINE (UA) NEGATIVE (NEGATIVE); KETONES,URINE (UA) NEGATIVE (NEGATIVE); LEUKOCYTE ESTERASE, URINE NEGATIVE (NEGATIVE); NITRITE,URINE NEGATIVE (NEGATIVE); OCCULT BLOOD,URINE NEGATIVE (NEGATIVE); PH,URINE 5.5 PH (5.0-7.5); PROTEIN,URINE NEGATIVE (NEGATIVE); UROBILINOGEN,URINE 0.2 (NORMAL) E.U./dL (NORMAL)
[2022-12-07 11:43] LABS: CLARITY,URINE CLEAR (CLEAR)
[2022-12-07 12:12] LABS: BACTERIA,URINE Rare /HPF (None Seen); RBC,URINE 0-5 /HPF (0-5); SQUAMOUS EPITHELIAL CELL,UR RARE Squamous (<= Few); WBC,URINE 0-3 /HPF (0-3)
== END 2022-12-07 11:33 | disposition home or self-care (01) ==
LOC: LAB 11:32
PROVIDERS: ATTEND Urology
DX: N20.0 Calculus of kidney (principal)
CPT/HCPCS: 81001; 87086

== ENCOUNTER 2022-12-21 14:00 | Outpatient (CLI) | payer MEDICARE, MEDICAID ==
--- NOTE | 2022-12-21 17:18 | XRAY Report ---
PROCEDURE: Abdomen 1 View (KUB) INDICATIONS: KIDNEY STONES TECHNIQUE: 2 views of the abdomen were acquired. COMPARISON: Correlation made to CT abdomen pelvis 11/25/2022 FINDINGS: There is a 6 mm calcification projecting centrally over the left renal shadow. A punctate calcificati on is seen in the left lower pole. Additionally, an 8 mm calcification projects over the right lower pole kidney shadow. No visible calculi along the expected ureteral courses. There is a pelvic phlebol ith in the right pelvis consistent with CT appearance. IMPRESSION: 1. There is retention of flow was likely previously obstructing left UPJ stone, now projecting over t he central left kidney. 2. Stable appearance of bilateral lower pole intrarenal calculi. Reviewed by: Yesenia Arias MD on 12/21/2022 4:17 PM RUSS Approved by: Yesenia Arias MD on 12/21/2022 4:17 PM RUSS Station ID: [id number]
== END 2022-12-21 23:59 | disposition home or self-care (01) ==
LOC: DI.WOS 14:00
PROVIDERS: ATTEND Urology
DX: N20.0 Calculus of kidney (principal)

== ENCOUNTER 2023-01-08 05:55 | Day surgery (SDC) | payer MEDICARE, MEDICAID ==
[2023-01-08] MEDS ORDERED: LACTATED RINGERS 1,000 ML IV ONE ×2 (06:16→08:25)
[2023-01-08] MEDS ORDERED: CIPROFLOXACIN 400 MG/200 ML 400 MG/200 ML BAG IV ONE (06:20)
--- NOTE | 2023-01-08 07:15 | ANESTHESIA ---
Pre-Anesthesia VS, & Labs - Diagnosis left kidney stone - Procedure left lazer lithotripsy kidney stone, cysto, uretersocopy Vital Signs: Temp Pulse Resp BP Pulse Ox O2 Flow Rate 36.0 C L 72 16 131/85 H 97 0 01/08/23 06:33 01/08/23 06:33 01/08/23 06:33 01/08/23 06:33 01/08/23 06:33 01/08/23 06:33 Height: 5 ft 9 in Weight (kg): 104 kg Body Mass Index: 33.8 BMI Classification: Obese - NPO >8 hours Home Medications and Allergies Home Medications: Ambulatory Orders Atorvastatin Calcium [Atorvaliq] 20 mg PO DAILY 01/05/23 Triamterene/Hydrochlorothiazid [Triamterene-Hctz 37.5-25 mg Cp] 1 each PO DAILY 01/05/23 Atorvastatin Calcium [Atorvaliq] 20 mg PO DAILY 01/05/23 Triamterene/Hydrochlorothiazid [Triamterene-Hctz 37.5-25 mg Cp] 1 each PO DAILY 01/05/23 Allergies/Adverse Reactions: Allergies Allergy/AdvReac Type Severity Reaction Status Date / Time Penicillins Allergy Mild Rash Verified 11/25/22 07:21 amoxicillin [Amoxicillin] AdvReac Intermediate Emesis Verified 11/25/22 07:21 amoxicillin trihydrate * AdvReac Intermediate Emesis Verified 11/25/22 07:21 [From Augmentin] potassium clavulanate * AdvReac Intermediate Emesis Verified 11/25/22 07:21 [From Augmentin] Anes History & Medical History - Anesthetic History Anesthesia Complications: reports: No previous complications - Medical History Cardiovascular: reports: Hypertension, High cholesterol Pulmonary: reports: Asthma Gastrointestinal: reports: None Urinary: reports: Kidney stones Neuro: reports: Headaches Musculoskeletal: reports: None Endocrine/Autoimmune: reports: None Blood Disorders: reports: None Skin: reports: None Smoking Status: Never smoker History of Cancer?: No - Surgical History Urologic: reports: Kidney stents, Ureterolithotomy (stones) Plan Anesthesia Type: General Consent for Procedure(s) Verified and Reviewed: Yes Code Status: Attempt Resuscitation ASA classification: 2-Mild systemic disease Is this case an emergency?: Yes
[2023-01-08] MEDS ORDERED: MIDAZOLAM 2 MG/2 ML VIAL ONE (07:16)
[2023-01-08] MEDS ORDERED: ONDANSETRON 4 MG/2 ML VIAL ONE (07:17)
[2023-01-08] MEDS ORDERED: fentaNYL 100 MCG/2 ML VIAL ONE (07:17)
[2023-01-08] MEDS ORDERED: DEXAMETHASONE 4 MG/ML VIAL ONE (07:17)
[2023-01-08] MEDS ORDERED: LIDOCAINE-PF 2% 10 ML AMP SUBQ ONE (07:17)
[2023-01-08] MEDS ORDERED: PROPOFOL 200 MG/20 ML VIAL IVP ONE (07:17)
[2023-01-08] MEDS ORDERED: fentaNYL 100 MCG/2 ML VIAL IVP PRN (07:21)
[2023-01-08] MEDS ORDERED: HYDROmorphone 0.5 MG/0.5 ML SYRINGE IVP PRN (07:21)
[2023-01-08] MEDS ORDERED: ePHEDrine 50 MG/ML VIAL IVP PRN (07:21)
[2023-01-08] MEDS ORDERED: METOCLOPRAMIDE 10 MG/2 ML VIAL IVP PRN (07:21)
[2023-01-08] MEDS ORDERED: NALOXONE 0.4 MG/ML VIAL IVP PRN (07:21)
[2023-01-08] MEDS ORDERED: ONDANSETRON 4 MG/2 ML VIAL IVP PRN ×2 (07:21→08:19)
[2023-01-08] MEDS ORDERED: MORPHINE 2 MG/ML CARPUJECT IVP PRN (07:21)
[2023-01-08] MEDS ORDERED: ATROPINE ABBOJECT 1 MG/10 ML SYRINGE IVP PRN (07:21)
[2023-01-08] MEDS ORDERED: LIDOCAINE 2% URO-JET 5 ML SYRINGE UR ONE ×2 (07:22→07:52)
[2023-01-08] MEDS ORDERED: LACTATED RINGERS 1,000 ML IV SCH ×2 (08:00→09:00)
[2023-01-08] MEDS ORDERED: KETOROLAC 30 MG/ML VIAL ONE (08:13)
[2023-01-08] MEDS ORDERED: HYDROcod/ACETAM 5/325 MG TABLET PO PRN (08:19)
--- NOTE | 2023-01-08 08:27 | Discharge Plan ---
Discharge Plan Problem Reviewed?: Yes Disposition: Home, Self Care Condition: Good Prescriptions: Docusate Sodium 100Mg Capsule [Colace 100Mg Capsule] 100 mg PO DAILY #14 cap cephALEXin [Keflex] 500 mg PO ONCE #1 cap HYDROcod/ACETAM 5/325 [Winters 5/325] 1 tab PO Q4H PRN #10 tablet PRN Reason: Pain Diet: Regular Activity Restrictions: No Restrictions Shower Restrictions: No Driving Restrictions: No Additional Instructions or Follow Up instructions: It is normal to see blood in your urine for the next several weeks. Is normal to have flank pain occasionally. Especially when you are urinating. It is normal to have increased frequency and urgency of urination. You will be seen later this week for stent removal in the office please take antibiotic as prescribed on the way to that appointment Please call the office for fever greater then 100.4 degrees, intractable nausea and vomiting where you cannot keep fluids down, or inability to urinate No Smoking: If you smoke, Please STOP! Call for help. Follow-up with: Don Dominguez MD [Provider Admit Priv/Credential] -
--- NOTE | 2023-01-08 08:29 | OPERATIVE REPORT ---
Operative Report - General Procedure Date: 01/08/23 Planned Procedure: Cystoscopy, left ureteroscopy, laser lithotripsy, stent Pre-Op Diagnosis: Left renal stone Procedure Performed: Cystoscopy, left ureteroscopy, laser lithotripsy, stent Post Op Diagnosis: Left renal stone - Procedure Note Primary Surgeon: Alberto Anesthesia Technique: General LMA Indications: Left renal stone Findings: Left radioopaque stone about 8mm, crystalline, dusted Complications: None - Other Other Information/Narrative: After informed consent was obtained the patient was brought to the OR and laid in the supine position at that point time the patient was anesthetized per anesthesia protocols and prepped and draped in usual sterile fashion. He was placed into the lithotomy position. A formal timeout was performed reconfirming the patient procedure and laterality. A 22 Dutch cystoscope was advanced easily into the urinary bladder bladder was inspected full there are no masses lesions or other concerns. Attention was paid to the left side ureteral orifice where a sensor wire was placed up to the kidney x2. We could see on fluoroscopy there was a radiopaque 8 mm stone in the midpole. Using an 12/14f, 38 cm ureteral access sheath we attempted to dilate the ureter on the left in order to improve access. However there was some narrowing at the mid ureter and we could not advance the 12f portion even after switching the sensor wire to a Super Stiff wire. At that point we just placed the flexible ureteroscope over the Super Stiff wire up into the kidney. There we could easily see the stone in the midpole. It was crystalline and yellow. Using the dusting and fragmenting settings of 0.5/20, 0.8/8. We were able to dust the stone into tiny fragments. The stone pieces were too small to grasp. On x-ray we can no longer see any more stone fragments. We then cleared the ureter under direct visualization and there were no other stones or other concerns. There is no strictures or other issues the ureter was just slightly narrow not accommodating the 12 Dutch sheath previously. A 6 Dutch 26 cm double-J ureteral stent was placed with good curling noted in the kidney and good curling noted in the bladder the bladder was emptied and a Uro-Jet was placed. The patient was then reversed from anesthesia and brought to the PACU that further incident all surgical counts were correct.
[2023-01-08 09:43] VITALS: BP 125/70
--- NOTE | 2023-01-08 12:45 | ANESTHESIA POST OP EVALUATION ---
Anesthesia Post Eval - Post Anesthesia Eval Vitals: Last Vital Signs Temp 36.0 C L 01/08/23 09:30 Pulse 63 01/08/23 09:30 Resp 16 01/08/23 09:30 BP 125/70 01/08/23 09:30 Pulse Ox 99 01/08/23 09:30 O2 Flow Rate 0 01/08/23 06:33 CV Function Including HR & BP: Stable Pain Control: Satisfactory Nausea & Vomiting: Negative Mental Status: Baseline Respiratory Status: Airway Patent Hydration Status: Satisfactory Anesthesia Complications: None
== END 2023-01-08 05:56 | disposition home or self-care (01) ==
LOC: SDS 05:55
PROVIDERS: ATTEND Urology
DX: N20.0 Calculus of kidney (principal); I10 Essential (primary) hypertension; J45.909 Unspecified asthma, uncomplicated; E66.9 Obesity, unspecified; Z68.33 Body mass index [BMI] 33.0-33.9, adult
CPT/HCPCS: 52356; C1758; J7120

== ENCOUNTER 2023-03-13 13:02 | Outpatient (CLI) | payer MEDICARE, MEDICAID ==
[2023-03-13 18:03] LABS: BASOPHILS % (AUTO) 0.5 %; EOSINOPHILS % (AUTO) 0.7 %; HCT - HEMATOCRIT 46.5 % (42.0-52.0); HGB - HEMOGLOBIN 15.6 g/dL (14.0-18.0); LYMPHOCYTES # (AUTO) 1.2 10^3/uL (1.5-3.5); LYMPHOCYTES % (AUTO) 28.7 %; MEAN CORPUSCULAR HEMOGLOBIN 31.4 pg (27.0-31.0); MEAN CORPUSCULAR HGB CONC 33.5 g/dL (32.0-36.0); MEAN CORPUSCULAR VOLUME 93.6 fL (80.0-94.0); MEAN PLATELET VOLUME 10.8 fL (7.4-11.4); MONOCYTES # (AUTO) 0.4 10^3/uL (0.0-1.0); MONOCYTES % (AUTO) 8.6 %; NEUTROPHILS # (AUTO) 2.6 10^3/uL (1.5-6.6); NEUTROPHILS % (AUTO) 61.3 %; PLT - PLATELET COUNT 207 10^3/uL (130-450); RED BLOOD COUNT 4.97 10^6/uL (4.70-6.10); RED CELL DISTRIBUTION WIDTH 11.8 % (12.0-15.0); WHITE BLOOD COUNT 4.2 x10^3/uL (4.8-10.8)
[2023-03-13 19:05] LABS: ALBUMIN 4.8 g/dL (3.2-5.5); ALKALINE PHOSPHATASE 65 IU/L (42-121); ALT ALANINE AMINOTRANSFERASE 49 IU/L (10-60); AST ASPARTATE AMINOTRANSFERASE 33 IU/L (10-42); BILIRUBIN,TOTAL 0.7 mg/dL (0.2-1.0); BUN - BLOOD UREA NITROGEN 13 mg/dL (6-20); CALCIUM 9.8 mg/dL (8.5-10.3); CARBON DIOXIDE - CO2 33 mmol/L (21-32); CHLORIDE 102 mmol/L (101-111); CHOL/HDL RATIO 4.4 (<5.0); CHOLESTEROL 159 mg/dL; CREATININE 0.7 mg/dL (0.6-1.3); GFR - MDRD 120 (>89); GLUCOSE 92 mg/dL (74-104); HDL CHOLESTEROL 36 mg/dL; LDL CHOLESTEROL,CALCULATED 90 mg/dL; LDL/HDL RATIO 2.5 (<3.6); POTASSIUM 4.1 mmol/L (3.5-4.5); SODIUM 141 mmol/L (135-145); TOTAL PROTEIN 7.2 g/dL (6.4-8.9); TRIGLYCERIDES 164 mg/dL (48-352); VLDL CHOLESTEROL 33 mg/dL
[2023-03-13 19:18] LABS: THYROID STIMULATING HORMONE 1.27 uIU/mL (0.34-5.60)
== END 2023-03-13 13:03 | disposition home or self-care (01) ==
LOC: LAB.N 13:02
PROVIDERS: ATTEND Physician Assistant
DX: E78.5 Hyperlipidemia, unspecified (principal); R73.01 Impaired fasting glucose; Z79.899 Other long term (current) drug therapy; Z13.29 Encounter for screening for other suspected endocrine disorder
CPT/HCPCS: 36415; 80053; 80061; 83721; 84443; 85025

== ENCOUNTER 2024-01-15 16:50 | Emergency (ER) | payer MEDICARE, MEDICAID ==
[2024-01-15 17:25] VITALS: BP 155/82; O2SAT 100
[2024-01-15 17:30] LABS: BILIRUBIN,URINE NEGATIVE (NEGATIVE); GLUCOSE, URINE (UA) NEGATIVE (NEGATIVE); KETONES,URINE (UA) NEGATIVE (NEGATIVE); LEUKOCYTE ESTERASE, URINE NEGATIVE (NEGATIVE); NITRITE,URINE NEGATIVE (NEGATIVE); OCCULT BLOOD,URINE TRACE-LYSE (NEGATIVE); PROTEIN,URINE NEGATIVE (NEGATIVE); UROBILINOGEN,URINE 0.2 (NORMAL) E.U./dL (NORMAL)
[2024-01-15 17:37] LABS: BASOPHILS % (AUTO) 0.6 %; EOSINOPHILS % (AUTO) 0.7 %; HCT - HEMATOCRIT 45.6 % (42.0-52.0); HGB - HEMOGLOBIN 15.2 g/dL (14.0-18.0); LYMPHOCYTES # (AUTO) 1.6 10^3/uL (1.5-3.5); LYMPHOCYTES % (AUTO) 28.7 %; MEAN CORPUSCULAR HEMOGLOBIN 31.5 pg (27.0-31.0); MEAN CORPUSCULAR HGB CONC 33.3 g/dL (32.0-36.0); MEAN CORPUSCULAR VOLUME 94.6 fL (80.0-94.0); MEAN PLATELET VOLUME 10.3 fL (7.4-11.4); MONOCYTES # (AUTO) 0.4 10^3/uL (0.0-1.0); MONOCYTES % (AUTO) 7.7 %; NEUTROPHILS # (AUTO) 3.4 10^3/uL (1.5-6.6); NEUTROPHILS % (AUTO) 62.1 %; PLT - PLATELET COUNT 209 10^3/uL (130-450); RED BLOOD COUNT 4.82 10^6/uL (4.70-6.10); RED CELL DISTRIBUTION WIDTH 11.9 % (12.0-15.0); WHITE BLOOD COUNT 5.4 x10^3/uL (4.8-10.8)
[2024-01-15 17:44] LABS: CLARITY,URINE CLEAR (CLEAR)
[2024-01-15 18:01] LABS: ALBUMIN 5.1 g/dL (3.2-5.5); ALBUMIN/GLOBULIN RATIO 2.2 (1.0-2.2); BILIRUBIN,TOTAL 0.5 mg/dL (0.2-1.0); CALCIUM 9.9 mg/dL (8.5-10.3); CREATININE 0.7 mg/dL (0.6-1.3); POTASSIUM 3.7 mmol/L (3.5-4.5); TOTAL PROTEIN 7.4 g/dL (6.4-8.9)
--- NOTE | 2024-01-15 20:39 | CT Report ---
PROCEDURE: Abdomen/Pelvis WO INDICATIONS: bilat flank pain TECHNIQUE: A CT scan of the abdomen and pelvis was performed without the use of intravenous contrast. Images we re recorded and evaluated at appropriate window settings. Reformats: coronal and sagittal. For radiat ion dose reduction, the following was used: automated exposure control, adjustment of mA and/or kV ac cording to patient size. COMPARISON: CT abdomen and pelvis 11/25/2022. FINDINGS: Image quality: Diagnostic. Lower chest: Unremarkable. Liver: Stable hypodense foci. Likely a cyst or hemangioma. Gallbladder: No radiopaque stones or wall thickening. Biliary tree: No intrahepatic or extrahepatic dilation, accounting for age. Spleen: Upper limits of normal normal in size. Pancreas: No pancreatic ductal dilation. Adrenals: No adrenal nodule. Kidneys and ureters: Obstructing calculus at the left UPJ measuring 0.4 cm, (). Mild left hydrone phrosis. No right hydronephrosis. Additional small nonobstructing kidney stones bilaterally. No renal contour abnormality identified. Stomach, bowel and peritoneum: No gastric or small bowel dilation. No abnormal wall thickening. No pa thologic free fluid. Normal appendix. Lymph nodes: No central or retroperitoneal adenopathy. Vessels: No infrarenal aortic aneurysm. Reproductive organs: Unremarkable. Bladder: Bladder wall thickness is normal, accounting for underdistention. No calcified bladder stone s. Pelvic lymph nodes: No adenopathy by size criteria. Bones: No aggressive osseous abnormality. Other: No significant ventral or inguinal hernia. IMPRESSION: 1. Obstructing calculus at the left UPJ measuring 0.4 cm. Mild left hydronephrosis. 2. Additional small nonobstructing kidney stones bilaterally. Reviewed by: Shashi Watson MD on 01/15/2024 8:37 PM PDT Approved by: Shashi Watson MD on 01/15/2024 8:37 PM PDT Station ID: [id number]
--- NOTE | 2024-01-15 20:58 | ED Physician Documentation ---
PD HPI ABD PAIN - Stated complaint Stated Complaint: ABD PX/DIARRHEA - Chief complaint Chief Complaint: Abd Pain - History obtained from History obtained from: Patient - Additional information Additional information: The patient comes to the emergency department chief complaint of nausea, diarrhea, and bilateral flank pain for the last 5 to 6 days. He states that he was feeling fine before that. He does have a history of kidney stones has not noticed any blood in his urine. He has had a little dysuria recently. No fevers or chills. The patient states that he has followed with a urologist and has had to have a kidney stone removed surgically previously. No sick contacts. He states his stools have been black but he has been taking Pepto-Bismol. He has no history of GI bleed and has not had any abdominal pain prior to onset of the symptoms. He has been having some cramping when he has diarrhea. No other complaints at this time. He does note that he has been able to keep lots of fl uids down but gets diarrhea immediately when he eats so has not been eating much. PD PAST MEDICAL HISTORY - Past Medical History Past Medical History: Yes Cardiovascular: Hypertension, High cholesterol Respiratory: Asthma Neuro: Headaches Endocrine/Autoimmune: None GI: None : Kidney stones HEENT: None Psych: None Musculoskeletal: None Derm: None - Past Surgical History Past Surgical History: Yes - Present Medications Home Medications: Ambulatory Orders Medication Instructions Recorded Confirmed Ibuprofen [Motrin] 800 mg PO Q8H PRN #30 tablet 03/30/17 01/05/23 Meloxicam [Mobic] 7.5 mg PO BID PRN #20 tablet 08/06/18 Hydrocodone/Acetaminophen 1 - 2 each PO Q6H PRN #14 tablet 03/06/19 01/05/23 [Hydrocodon-Acetaminophen 5-325] Ondansetron Odt [Zofran] 4 mg TL Q6H PRN #10 tablet 06/26/20 01/05/23 Cyclobenzaprine [Flexeril] 10 mg PO TID PRN #20 tablet 09/21/20 01/05/23 Ibuprofen [Motrin] 600 mg PO Q6H PRN #30 tab 09/21/20 01/05/23 Naproxen 500 mg PO BID #20 tab 11/25/22 01/05/23 Promethazine [Phenergan] 25 mg PO Q6H PRN #15 tab 11/25/22 01/05/23 oxyCODONE [Roxicodone] 5 mg PO Q6H PRN #20 tablet 11/25/22 01/05/23 Atorvastatin Calcium [Atorvaliq] 20 mg PO DAILY 01/05/23 01/05/23 Triamterene/Hydrochlorothiazid 1 each PO DAILY 01/05/23 01/05/23 [Triamterene-Hctz 37.5-25 mg Cp] Docusate Sodium 100Mg Capsule 100 mg PO DAILY #14 cap 01/08/23 [Colace 100Mg Capsule] HYDROcod/ACETAM 5/325 [Coden 5/325] 1 tab PO Q4H PRN #10 tablet 01/08/23 cephALEXin [Keflex] 500 mg PO ONCE #1 cap 01/08/23 Ondansetron Odt [Zofran] 4 mg TL Q6H PRN #10 tablet 01/15/24 - Allergies Allergies/Adverse Reactions: Allergies Allergy/AdvReac Type Severity Reaction Status Date / Time Penicillins Allergy Mild Rash Verified 01/15/24 17:10 amoxicillin [Amoxicillin] AdvReac Intermediate Emesis Verified 01/15/24 17:10 amoxicillin trihydrate * AdvReac Intermediate Emesis Verified 01/15/24 17:10 [From Augmentin] potassium clavulanate * AdvReac Intermediate Emesis Verified 01/15/24 17:10 [From Augmentin] - Social History Does the pt smoke?: No Smoking Status: Never smoker Does the pt drink ETOH?: No Does the pt have substance abuse?: No - Immunizations Immunizations are current?: No Immunizations: TDAP >10years/unknown - POLST Patient has POLST: No PD ED PE NORMAL - Vitals Vital signs reviewed: Yes - General General: Alert and oriented X 3, No acute distress, Well developed/nourished - HEENT HEENT: Atraumatic, PERRL, EOMI, Moist mucous membranes - Neck Neck: Supple, no meningeal sign - Cardiac Cardiac: RRR, No murmur - Respiratory Respiratory: No respiratory distress, Clear bilaterally - Abdomen Abdomen: Soft, Non distended, Other - Back Back: No CVA TTP - Derm Derm: Normal color, Warm and dry, No rash - Extremities Extremities: No deformity - Neuro Neuro: Alert and oriented X 3 - Psych Psych: Normal mood, Normal affect Results - Vitals Vitals: Vital Signs - 24 hr 01/15/24 17:10 Temperature 36.8 C Heart Rate 70 Respiratory 16 Rate Blood Pressure 155/82 H O2 Saturation 100 Oxygen O2 Source Room air - Labs Labs: Laboratory Tests 01/15/24 01/15/24 01/15/24 17:20 17:32 17:32 WBC 5.4 RBC 4.82 Hgb 15.2 Hct 45.6 MCV 94.6 H MCH 31.5 H MCHC 33.3 RDW 11.9 L Plt Count 209 MPV 10.3 Neut # (Auto) 3.4 Lymph # (Auto) 1.6 [place] # (Auto) 0.4 Eos # (Auto) 0.0 Baso # (Auto) 0.0 Absolute Nucleated RBC 0.00 Nucleated RBC % 0.0 Sodium 136 Potassium 3.7 Chloride 100 L Carbon Dioxide 29 Anion Gap 7.0 BUN 13 Creatinine 0.7 Estimated GFR (MDRD) 119 Glucose 79 Calcium 9.9 Total Bilirubin 0.5 AST 28 ALT 40 Alkaline Phosphatase 69 Total Protein 7.4 Albumin 5.1 Globulin 2.3 Albumin/Globulin Ratio 2.2 Lipase 17 Urine Color LIGHT YELLOW Urine Clarity CLEAR Urine pH 7.0 Ur Specific [place] 1.015 Urine Protein NEGATIVE Urine Glucose (UA) NEGATIVE Urine Ketones NEGATIVE Urine Occult Blood TRACE-LYSE Urine Nitrite NEGATIVE Urine Bilirubin NEGATIVE Urine Urobilinogen 0.2 (NORMAL) Ur Leukocyte Esterase NEGATIVE Ur Microscopic Review NOT INDICATED Urine Culture Comments NOT INDICATED PD Medical Decision Making - ED course Complexity details: reviewed results, re-evaluated patient, considered differential, d/w patient ED course: The patient was treated symptomatically with Zofran and worked up with labs, urinalysis, and noncontrast CT of the abdomen and pelvis. The patient's labs were unremarkable. His CT showed a left UPJ stone that was obstructing, but unlikely to be the cause of his symptoms today. The patient was treated symptomatically with Zofran and found to be feeling better and requested discharge home. I discussed his findings with him and that he should follow-up with his urologist regarding the left-sided stone. We have discussed symptomatic management of his diarrhea and nausea and the need for aggressive fluid hydration. We have discussed the usual indications for return. Departure - Departure Disposition: 01 Home, Self Care Clinical Impression: Gastroenteritis, Kidney stone on left side Condition: Stable Instructions: ED Gastroenteritis Viral, ED Stone Renal W Colic Prescriptions: Ondansetron Odt [Zofran] 4 mg TL Q6H PRN #10 tablet PRN Reason: Nausea / Vomiting Comments: Your laboratory studies and urinalysis look good. Your CT scan shows a stone in your left kidney that is lodged in the top of your ureter at the kidney, but does not appear to necessarily be moving down. Though this stone is of a passable size, it does appear to be causing some obstruction of your kidney, and you should definitely follow-up with your urologist to determine whether anything should be done about this stone or not. It is possible that it may pass on its own. This is unlikely to be the cause of your symptoms that you have been having for the last 5 or 6 days, and The nausea and diarrhea is much more consistent with the viral illnesses that we have been seen going around recently. These last anywhere from a few days to couple of weeks. I have given you a dose of nausea medicine tonight and have sent a prescription for the same to the [facility] pharmacy in [place], your pharmacy of choice on record. You may pick this up and take as needed. For now, please stick with drinking clear fluids including electrolyte solutions and if you feel hungry, stick with simple starches like Ramen noodles and saltine or oyster crackers. Once you are able to tolerate these without having immediate diarrhea, you may gradually increase your diet to more complex items. Please schedule the next available follow-up appointment with your primary doctor. Forms: PCP List Discharge Date/Time: 01/15/24 21:24
[2024-01-15] MEDS: ONDANSETRON ODT 4 MG TABLET TL STA (21:04)
== END 2024-01-15 21:24 | disposition home or self-care (01) ==
LOC: ED 16:50
DX: K52.9 Noninfective gastroenteritis and colitis, unspecified (principal); N20.0 Calculus of kidney; I10 Essential (primary) hypertension; E78.00 Pure hypercholesterolemia, unspecified; Z87.442 Personal history of urinary calculi; Z79.899 Other long term (current) drug therapy
CPT/HCPCS: 36415; 74176; 80053; 81003; 83690; 85025; 99283; 99284; Q0162; 81001; 87086

== ENCOUNTER 2024-01-21 09:33 | Day surgery (SDC) | payer MEDICARE, MEDICAID ==
[~2024-01-21 09:33] MED LIST: CIPROFLOXACIN 400 MG/200 ML 400 MG/200 ML BAG IV ONE
[2024-01-21] MEDS: LACTATED RINGERS 1,000 ML IV ONE ×2 (09:54→12:12)
[2024-01-21] MEDS ORDERED: LIDOCAINE-PF 2% 10 ML AMP SUBQ ONE (11:00)
[2024-01-21] MEDS ORDERED: fentaNYL 100 MCG/2 ML VIAL ONE (11:00)
[2024-01-21] MEDS ORDERED: MIDAZOLAM 2 MG/2 ML VIAL ONE (11:00)
[2024-01-21] MEDS ORDERED: PROPOFOL 200 MG/20 ML VIAL IVP ONE (11:00)
[2024-01-21] MEDS ORDERED: KETOROLAC 30 MG/ML VIAL ONE ×2 (11:03→12:01)
[2024-01-21] MEDS ORDERED: LIDOCAINE 2% URO-JET 5 ML SYRINGE UR ONE (11:17)
[2024-01-21] MEDS ORDERED: DEXAMETHASONE 4 MG/ML VIAL ONE (11:41)
[2024-01-21] MEDS ORDERED: ONDANSETRON 4 MG/2 ML VIAL ONE (11:41)
[2024-01-21] MEDS ORDERED: ONDANSETRON 4 MG/2 ML VIAL IVP PRN ×2 (11:46→12:06)
[2024-01-21] MEDS ORDERED: MORPHINE 2 MG/ML CARPUJECT IVP PRN (11:46)
[2024-01-21] MEDS ORDERED: fentaNYL 100 MCG/2 ML VIAL IVP PRN (11:46)
[2024-01-21] MEDS ORDERED: HYDROmorphone 0.5 MG/0.5 ML SYRINGE IVP PRN (11:46)
[2024-01-21] MEDS ORDERED: ATROPINE ABBOJECT 1 MG/10 ML SYRINGE IVP PRN (11:46)
[2024-01-21] MEDS ORDERED: METOCLOPRAMIDE 10 MG/2 ML VIAL IVP PRN (11:46)
[2024-01-21] MEDS ORDERED: NALOXONE 0.4 MG/ML VIAL IVP PRN (11:46)
[2024-01-21] MEDS ORDERED: ePHEDrine 50 MG/ML VIAL IVP PRN (11:46)
--- NOTE | 2024-01-21 11:46 | ANESTHESIA ---
Pre-Anesthesia VS, & Labs - Diagnosis L renal calculi - Procedure L cystoscopy, ureteroscpy, laser lithotripsy, L stent placement Vital Signs: Temp Pulse Resp BP Pulse Ox O2 Flow Rate 36.2 C L 65 18 127/79 99 0 01/21/24 09:55 01/21/24 09:55 01/21/24 09:55 01/21/24 09:55 01/21/24 09:55 01/21/24 09:55 Height: 5 ft 10 in Weight (kg): 101.6 kg Body Mass Index: 32.1 BMI Classification: Obese - NPO >8 hours Home Medications and Allergies Home Medications: Ambulatory Orders traZODone [Desyrel] 100 mg ORAL DAILY 01/18/24 Atorvastatin Calcium [Atorvaliq] 20 mg PO DAILY 01/05/23 Triamterene/Hydrochlorothiazid [Triamterene-Hctz 37.5-25 mg Cp] 1 each PO DAILY 01/05/23 traZODone [Desyrel] 100 mg ORAL DAILY 01/18/24 Allergies/Adverse Reactions: Allergies Allergy/AdvReac Type Severity Reaction Status Date / Time Penicillins Allergy Mild Rash Verified 01/21/24 09:58 amoxicillin [Amoxicillin] AdvReac Intermediate Emesis Verified 01/21/24 09:58 amoxicillin trihydrate * AdvReac Intermediate Emesis Verified 01/21/24 09:58 [From Augmentin] potassium clavulanate * AdvReac Intermediate Emesis Verified 01/21/24 09:58 [From Augmentin] Anes History & Medical History - Anesthetic History Anesthesia Complications: reports: No previous complications Family history of Anesthesia Complications: Denies Family history of Malignant Hyperthermia: Denies - Medical History Cardiovascular: reports: Hypertension, High cholesterol Pulmonary: reports: Asthma Gastrointestinal: reports: None Urinary: reports: None Neuro: reports: Headaches Musculoskeletal: reports: Osteoarthritis Endocrine/Autoimmune: reports: None Blood Disorders: reports: None Skin: reports: None Smoking Status: Never smoker Psychosocial: reports: No issues indicated - Surgical History Urologic: reports: Ureterolithotomy (stones) Exam General: Alert, Oriented x3, Cooperative Dental: WNL, Other (narrow palate, prominent incisors, with micrognathia) Mouth Openin Fingerbreadth Neck Mobility: Normal Mallampati classification: II Thyromental Distance: less than 4 cm Respiratory: Lungs clear Cardiovascular: Regular rate Plan Anesthesia Type: General Consent for Procedure(s) Verified and Reviewed: Yes Code Status: Attempt Resuscitation ASA classification: 2-Mild systemic disease Is this case an emergency?: No
[2024-01-21] MEDS: LIDOCAINE 2% URO-JET 5 ML SYRINGE UR ONE (11:54)
[2024-01-21] MEDS ORDERED: LACTATED RINGERS 1,000 ML IV SCH (12:00)
[2024-01-21] MEDS ORDERED: HYDROcod/ACETAM 5/325 MG TABLET PO PRN (12:06)
--- NOTE | 2024-01-21 12:10 | Discharge Plan ---
Discharge Plan Problem Reviewed?: Yes Disposition: Home, Self Care Condition: Good Prescriptions: Docusate Sodium 100Mg Capsule [Colace 100Mg Capsule] 100 mg PO DAILY #14 cap oxyCODONE [Roxicodone] 5 mg PO Q4H PRN #10 tablet PRN Reason: Pain Diet: Regular Activity Restrictions: No Restrictions Shower Restrictions: No Driving Restrictions: No Instruction Topics: Stents Ureteral Additional Instructions or Follow Up instructions: you will be contacted for followup with Dr Dominguez in 3 months time No Smoking: If you smoke, Please STOP! Call for help. Follow-up with: Don Dominguez MD [Provider Admit Priv/Credential] -
--- NOTE | 2024-01-21 12:13 | OPERATIVE REPORT ---
Operative Report - General Procedure Date: 01/21/24 Planned Procedure: Cystoscopy, left ureteroscopy, laser lithotripsy stent Pre-Op Diagnosis: left kidney stone Procedure Performed: Cystoscopy, left ureteroscopy, laser lithotripsy stent Post Op Diagnosis: left kidney stone - Procedure Note Primary Surgeon: Alberto Anesthesia Provider: KERA Langford Anesthesia Technique: General LMA Pathology: none Findings: 4mm kidney stone dusted Complications: none - Other Other Information/Narrative: After informed sent was obtained the patient was brought to the OR and laid in the supine position. The patient was [place] per anesthesia protocols and prepped draped in usual sterile fashion in the dorsolithotomy position. A formal timeout was performed reconfirming the patient, procedure and laterality. A 22 [place] cystoscope was advanced easily to urinary bladder. Bladder inspected and full and there were no masses lesions or other concerns. A sensor wire was placed up the left ureteral orifice up into the kidney. The bladder was drained and then a flexible ureteroscope was advanced next the wire all the way up to the kidney. We noticed that the UPJ was narrow but did except the ureteroscope with ease. In the renal pelvis was a 4 mm crystalline yellow appearing kidney stone consistent what was seen on prior imaging. Using a 200 m laser fiber we dusted the stone at a rate of 8 and a power of 0.8. Only small dust remained. We then cleared the ureter and direct visualization and a 6 [place] 26 cm double-J stent was placed with good curling noted in the bladder. We emptied his bladder and taped the string of the stents to his penis with a Tegaderm. A Uro-Jet was placed All counts are correct. The patient brought to PACU that further incident. He will remove the stent in 3 days and follow-up in 3 months
--- NOTE | 2024-01-21 12:52 | ANESTHESIA POST OP EVALUATION ---
Anesthesia Post Eval - Post Anesthesia Eval Vitals: Last Vital Signs Temp 36.0 C L 01/21/24 12:47 Pulse 64 01/21/24 12:47 Resp 16 01/21/24 12:47 BP 120/92 H 01/21/24 12:47 Pulse Ox 99 01/21/24 12:47 O2 Flow Rate 0 01/21/24 09:55 CV Function Including HR & BP: Stable Pain Control: Satisfactory Nausea & Vomiting: Negative Mental Status: Baseline Respiratory Status: Airway Patent Hydration Status: Satisfactory Anesthesia Complications: None
[2024-01-21 12:59] VITALS: BP 120/92; O2SAT 99
== END 2024-01-21 09:34 | disposition home or self-care (01) ==
LOC: SDS 09:33
PROVIDERS: ATTEND Urology
DX: N20.0 Calculus of kidney (principal); Z87.442 Personal history of urinary calculi; R31.9 Hematuria, unspecified; E66.9 Obesity, unspecified; Z68.32 Body mass index [BMI] 32.0-32.9, adult
CPT/HCPCS: 52356; C1758; C2617; J7120

== ENCOUNTER 2024-02-20 08:00 | Outpatient (CLI) | payer MEDICARE ==
[2024-02-21 12:29] LABS: BILIRUBIN,URINE NEGATIVE (NEGATIVE); GLUCOSE, URINE (UA) NEGATIVE (NEGATIVE); KETONES,URINE (UA) NEGATIVE (NEGATIVE); LEUKOCYTE ESTERASE, URINE NEGATIVE (NEGATIVE); NITRITE,URINE NEGATIVE (NEGATIVE); OCCULT BLOOD,URINE SMALL (NEGATIVE); PROTEIN,URINE NEGATIVE (NEGATIVE); UROBILINOGEN,URINE 0.2 (NORMAL) E.U./dL (NORMAL)
[2024-02-21 12:31] LABS: CLARITY,URINE CLEAR (CLEAR)
[2024-02-21 12:49] LABS: BACTERIA,URINE Rare /HPF (None Seen); RBC,URINE 0-5 /HPF (0-5); SQUAMOUS EPITHELIAL CELL,UR RARE Squamous (<= Few); WBC,URINE 0-3 /HPF (0-3)
== END 2024-02-20 08:01 | disposition home or self-care (01) ==
LOC: LAB 08:00
PROVIDERS: ATTEND Urology
DX: Z87.442 Personal history of urinary calculi (principal)
CPT/HCPCS: 81001; 81003; 87086

== ENCOUNTER 2024-02-22 05:53 | Emergency (ER) | payer MEDICARE, MEDICAID ==
[2024-02-22 06:27] LABS: BASOPHILS % (AUTO) 0.3 %; EOSINOPHILS % (AUTO) 0.1 %; HCT - HEMATOCRIT 41.8 % (42.0-52.0); HGB - HEMOGLOBIN 13.8 g/dL (14.0-18.0); LYMPHOCYTES # (AUTO) 0.8 10^3/uL (1.5-3.5); LYMPHOCYTES % (AUTO) 7.9 %; MEAN CORPUSCULAR HEMOGLOBIN 31.3 pg (27.0-31.0); MEAN CORPUSCULAR VOLUME 94.8 fL (80.0-94.0); MONOCYTES # (AUTO) 0.6 10^3/uL (0.0-1.0); MONOCYTES % (AUTO) 5.9 %; NEUTROPHILS # (AUTO) 8.7 10^3/uL (1.5-6.6); NEUTROPHILS % (AUTO) 85.5 %; PLT - PLATELET COUNT 218 10^3/uL (130-450); RED BLOOD COUNT 4.41 10^6/uL (4.70-6.10); RED CELL DISTRIBUTION WIDTH 11.7 % (12.0-15.0); WHITE BLOOD COUNT 10.2 x10^3/uL (4.8-10.8)
[2024-02-22] MEDS: ONDANSETRON 4 MG/2 ML VIAL IVP STA (06:34)
[2024-02-22] MEDS: HYDROmorphone 1 MG/ML CARPUJECT IVP STA (06:34)
[2024-02-22] MEDS: KETOROLAC 30 MG/ML VIAL IVP STA (06:34)
[2024-02-22] MEDS: SODIUM CHLORIDE 0.9% 1,000 ML IV STA (06:35)
[2024-02-22 06:45] LABS: ALBUMIN 4.5 g/dL (3.2-5.5); ALBUMIN/GLOBULIN RATIO 1.7 (1.0-2.2); BILIRUBIN,TOTAL 0.4 mg/dL (0.2-1.0); CALCIUM 9.8 mg/dL (8.5-10.3); CREATININE 1.2 mg/dL (0.6-1.3); POTASSIUM 4.1 mmol/L (3.5-4.5); TOTAL PROTEIN 7.1 g/dL (6.4-8.9)
[2024-02-22 06:55] LABS: BILIRUBIN,URINE NEGATIVE (NEGATIVE); GLUCOSE, URINE (UA) NEGATIVE (NEGATIVE); KETONES,URINE (UA) NEGATIVE (NEGATIVE); LEUKOCYTE ESTERASE, URINE NEGATIVE (NEGATIVE); NITRITE,URINE NEGATIVE (NEGATIVE); OCCULT BLOOD,URINE LARGE (NEGATIVE); PH,URINE 5.5 PH (5.0-7.5); PROTEIN,URINE TRACE mg/dL (NEGATIVE); UROBILINOGEN,URINE 0.2 (NORMAL) E.U./dL (NORMAL)
[2024-02-22 06:59] LABS: CLARITY,URINE HAZY (CLEAR)
--- NOTE | 2024-02-22 07:00 | ED Physician Documentation ---
PD HPI ABD PAIN - Stated complaint Stated Complaint: VOMITING/ABD/BACK PX - Chief complaint Chief Complaint: Abd Pain - History obtained from History obtained from: Patient - Additional information Additional information: HPI from patient. Patient complains of right flank pain that radiates to his right upper paralumbar region as well as to his right upper quadrant. This is been associated with nausea and vomiting. Onset approximately 1 AM this morning, waking him from sleep. The pain waxes and wanes without any apparent exacerbating nor ameliorating factors. Patient says he feels the symptoms are similar to renal colic he has had many previous times in the past associated with kidney stones. He says he has had approximately 6 different visits to the operating room for removal of kidney stones, most recently 1 month ago. The stent that was placed on this most recent procedure was removed (by patient) approximately 2 weeks ago. He says that, since removing the stent, he has had intermittent gross hematuria but no pain until this morning PD PAST MEDICAL HISTORY - Past Medical History Cardiovascular: Hypertension, High cholesterol Respiratory: Asthma Neuro: Headaches Endocrine/Autoimmune: None GI: None : None HEENT: None Psych: None Musculoskeletal: Osteoarthritis Derm: None - Past Surgical History Past Surgical History: Yes - Present Medications Home Medications: Ambulatory Orders Medication Instructions Recorded Confirmed Ondansetron Odt [Zofran] 4 mg TL Q6H PRN #10 tablet 06/26/20 01/05/23 Naproxen 500 mg PO BID #20 tab 11/25/22 01/05/23 Promethazine [Phenergan] 25 mg PO Q6H PRN #15 tab 11/25/22 01/05/23 Atorvastatin Calcium [Atorvaliq] 20 mg PO DAILY 01/05/23 01/18/24 Triamterene/Hydrochlorothiazid 1 each PO DAILY 01/05/23 01/18/24 [Triamterene-Hctz 37.5-25 mg Cp] Ondansetron Odt [Zofran] 4 mg TL Q6H PRN #10 tablet 01/15/24 traZODone [Desyrel] 100 mg ORAL DAILY 01/18/24 01/18/24 Docusate Sodium 100Mg Capsule 100 mg PO DAILY #14 cap 01/21/24 [Colace 100Mg Capsule] oxyCODONE [Roxicodone] 5 mg PO Q4H PRN #10 tablet 01/21/24 - Allergies Allergies/Adverse Reactions: Allergies Allergy/AdvReac Type Severity Reaction Status Date / Time Penicillins Allergy Mild Rash Verified 01/21/24 09:58 amoxicillin [Amoxicillin] AdvReac Intermediate Emesis Verified 01/21/24 09:58 amoxicillin trihydrate * AdvReac Intermediate Emesis Verified 01/21/24 09:58 [From Augmentin] potassium clavulanate * AdvReac Intermediate Emesis Verified 01/21/24 09:58 [From Augmentin] - Social History Does the pt smoke?: No Smoking Status: Never smoker Does the pt drink ETOH?: No Does the pt have substance abuse?: No - Immunizations Immunizations are current?: No Immunizations: TDAP >10years/unknown - POLST Patient has POLST: No PD ED PE NORMAL - Vitals Vital signs reviewed: Yes - General General: Alert and oriented X 3, No acute distress, Well developed/nourished - Cardiac Cardiac: RRR, No murmur - Respiratory Respiratory: No respiratory distress, Clear bilaterally - Abdomen Abdomen: Normal bowel sounds, Soft, Non tender, Non distended - Back Back: No CVA TTP Results - Vitals Vitals: Vital Signs - 24 hr 02/22/24 06:01 Temperature 36.6 C Heart Rate 72 Respiratory 20 Rate Blood Pressure 168/94 H O2 Saturation 99 Oxygen O2 Source Room air - Labs Labs: Laboratory Tests 02/22/24 02/22/24 02/22/24 06:23 06:23 06:35 WBC 10.2 RBC 4.41 L Hgb 13.8 L Hct 41.8 L MCV 94.8 H MCH 31.3 H MCHC 33.0 RDW 11.7 L Plt Count 218 MPV 10.0 Neut # (Auto) 8.7 H Lymph # (Auto) 0.8 L [place] # (Auto) 0.6 Eos # (Auto) 0.0 Baso # (Auto) 0.0 Absolute Nucleated RBC 0.00 Nucleated RBC % 0.0 Sodium 138 Potassium 4.1 Chloride 101 Carbon Dioxide 28 Anion Gap 9.0 BUN 26 H Creatinine 1.2 Estimated GFR (MDRD) 64 L Glucose 112 H Calcium 9.8 Total Bilirubin 0.4 AST 31 ALT 38 Alkaline Phosphatase 62 Total Protein 7.1 Albumin 4.5 Globulin 2.6 Albumin/Globulin Ratio 1.7 Lipase 16 Urine Color YELLOW Urine Clarity HAZY Urine pH 5.5 Ur Specific [place] >=1.030 H Urine Protein TRACE Urine Glucose (UA) NEGATIVE Urine Ketones NEGATIVE Urine Occult Blood LARGE H Urine Nitrite NEGATIVE Urine Bilirubin NEGATIVE Urine Urobilinogen 0.2 (NORMAL) Ur Leukocyte Esterase NEGATIVE Ur Microscopic Review INDICATED Urine Culture Comments Not Reportable PD Medical Decision Making - ED course Complexity details: considered differential, d/w patient ED course: Tests are pending at the end of my shift and thus care of this patient is turned over to the oncoming ED physician (Dr. Fraser). Departure - Departure Forms: PCP List
--- NOTE | 2024-02-22 07:05 | ED Physician Documentation ---
ED Addendum - Addendum Addendum: 02/22/24 08:09 48-year-old male with past medical significant for recurrent kidney stones. Signed out by outgoing physician, please see their documentation for further detail. CT imaging obtained demonstrates a 5.5 right sided stone. No signs renal failure, UTI, urosepsis. Patient follows closely with urology.Will have him follow-up with his urologist.
[2024-02-22 07:12] LABS: BACTERIA,URINE Moderate /HPF (None Seen); RBC,URINE TNTC /HPF (0-5); SQUAMOUS EPITHELIAL CELL,UR NONE SEEN (<= Few)
--- NOTE | 2024-02-22 07:58 | CT Report ---
PROCEDURE: Abdomen/Pelvis WO INDICATIONS: Evaluation for kidney stone TECHNIQUE: A CT scan of the abdomen and pelvis was performed without the use of intravenous contrast. Images we re recorded and evaluated at appropriate window settings. Reformats: coronal and sagittal. For radiat ion dose reduction, the following was used: automated exposure control, adjustment of mA and/or kV ac cording to patient size. COMPARISON: 01/15/2024. FINDINGS: Image quality: Diagnostic. Lower chest: Unremarkable. Liver: No contour-deforming mass. Gallbladder: No radiopaque stones or wall thickening. Biliary tree: No intrahepatic or extrahepatic dilation, accounting for age. Spleen: No splenomegaly. Pancreas: No pancreatic ductal dilation. Adrenals: No adrenal nodule. Right Kidney: 2 mm nonobstructing middle pole stone. Interval passage of a 5.5 mm stone from the lowe r pole into the ureter. Development of moderate hydronephrosis and perinephric stranding. Right Ureter: A 5.5 mm stone at the UPJ obstructs the right kidney resulting in moderate right hydron ephrosis. Left Kidney: Resolution of mild left hydronephrosis. Punctate residual lower pole stones. Left Ureter: No ureteral stone. Previous small UPJ stone has passed. Stomach, bowel and peritoneum: No gastric or small bowel dilation. No abnormal wall thickening. No pa thologic free fluid. Lymph nodes: No central or retroperitoneal adenopathy. Vessels: No infrarenal aortic aneurysm. Reproductive organs: Unremarkable. Bladder: Bladder wall thickness is normal, accounting for underdistention. No calcified bladder stone s. Pelvic lymph nodes: No adenopathy by size criteria. Bones: No aggressive osseous abnormality. Other: No significant ventral or inguinal hernia. IMPRESSION: A 5.5 mm stone obstructs the right kidney at the level of the right UPJ resulting in moderate right h ydronephrosis. Interval passage of a previous 2 mm left UPJ stone. Bilateral nonobstructing renal stones. Reviewed by: Cameron Burt MD on 02/22/2024 7:57 AM PDT Approved by: Cameron Burt MD on 02/22/2024 7:57 AM PDT Station ID: [id number]
[2024-02-22 08:27] VITALS: BP 112/63; O2SAT 95
== END 2024-02-22 08:17 | disposition home or self-care (01) ==
LOC: ED 05:53
DX: N20.0 Calculus of kidney (principal); I10 Essential (primary) hypertension; E78.00 Pure hypercholesterolemia, unspecified; Z87.442 Personal history of urinary calculi; Z79.899 Other long term (current) drug therapy
CPT/HCPCS: 36415; 74176; 80053; 81001; 83690; 85025; 96374; 99283; 99284; J1170; 81003; 87086